=== PATIENT | male | born 1965 | race Caucasian/White ===

== ENCOUNTER 2016-02-26 14:07 | Emergency (ER) | payer OTHER ==
[~2016-02-26] VITALS: Ht 182.9 cm; Wt 60.2 kg
[~2016-02-26 14:07] MED LIST: ADVAIR 100/501 DISK IH; ADVAIR 250/501 DISK IH; AFRIN,GENASAL D15 ML BOTH NARES; AFRIN3 ML NS; ALOE VERA PO; ALOE VERA25 MG PO; ASCORBIC ACID; AUGMENTIN875 MG PO; Afrin,Genasal Decon, NS; Ascorbic Acid,Ester- PO; Augmentin PO; BENTYL10 MG PO; BENTYL20 MG PO; BETA CAROTENE; Bentyl PO; CALCIUM600 MG PO; CARAFATE1 GM PO; CARAFATE100 MG/ML PO; CLEARLAX17 GM PO; COLACE100 MG PO; COMPAZINE10 MG PO; CREON; CREON 241 CAPSULE PO; CREON 61 CAPSULE PO; CREON DR 12,001 EAC1 PO; Creon 12 PO; DAILY VALUE1 EACH PO; DAILY VITAMIN1 EAC8 PO; DAILY VITE1 EAC1 PO; DESYREL12.5 MG PO; DICYCLOMINE HCL20 MG PO; DILAUDID2 MG PO; DILAUDID4 MG; DILAUDID4 MG PO; DILAUDID8 MG; DILAUDID8 MG PO; DIMENHYDRINATE50 MG PO; DONNATAL1 TABLET PO; DRAMAMINE PO; DRAMAMINE50 M1 PO; DRAMAMINE50 MG PO; Desyrel PO; Dilaudid PO; ECHINACEA; ECHINACEA380 MG PO; EFFEXOR100 MG PO; ENDOCET 5-3251 EACH PO; ESCITALOPRAM OX10 MG PO; ETHAMBUTOL HCL400 MG PO; EXALGO12 MG PO; EXALGO16 MG PO; EXALGO8 MG PO; EXCEDRIN; EXCEDRIN EXTRA1 EACH PO; EXCEDRIN1 TABLET PO; Echinacea PO; Effexor PO; Excedrin PO; FENTANYL PATCH TD; FEOSOL325 MG PO; FIBERCON625 MG PO; FISH OIL SOFTG1 EACH PO; FOLIC ACID1 MG PO; GABAPENTIN300 M1 PO; GABAPENTIN800 MG PO; GIN-ZING100 MG PO; GINSENG100 M2 PO; GREEN TEA315 MG PO; HABITROL,NICODE21 MG TD; HUMIBID LA,MUC600 MG PO; HYDROMORPHONE HC4 MG PO; HYDROMORPHONE HC8 MG PO; HYDROMORPHONE PUMP IV; IBUPROFEN200 M1 PO; IRON325 M1 PO; ISONIAZID,INH300 MG PO; LAXATIVE PEG 3510 GM PO; LEVAQUIN500 MG PO; LEVAQUIN750 MG PO; LEVEMIR100 UNIT/2 SC; LEXAPRO10 MG PO; LISINOPRIL10 MG PO; LOMOTIL TABLET1 EACH PO; METHIONINE PO; METOCLOPRAMIDE10 MG PO; MILK OF MAGN PO; MILK OF MAGNESI10 ML PO; MIRALAX17 GM PO; MORPHINE SULFAT15 M1 PO; MORPHINE SULFAT15 MG PO; MULTI-VIT 55 P1 EACH PO; MULTIVITAMIN1 EAC1 PO; MULTIVITAMIN1 EAC2 PO; Milk Of Magnesia,MOM PO; NAPROSYN500 MG PO; NASAL DECONGEST30 MG PO; NASAL DECONGEST30 ML BOTH NARES; NASAL SPRAY30 M1 NS; NASAL SPRAY30 M4 BOTH NARES; NEURONTIN300 MG PO; NEURONTIN800 MG PO; NEXIUM40 MG PO; NICOTINE PATCH1 EAC1 TD; NOVOLOG PE100 UNITS/ SC; Neurontin PO; OMEGA 3; OMEGA-31000 M1 PO; OMEPRAZOLE20 MG PO; OMEPRAZOLE40 M1 PO; ONDANSETRON HCL4 MG PO; OXYCODONE HCL10 MG PO; OXYCODONE HCL20 MG PO; OXYCODONE15 MG PO; OXYCODONE5 MG PO; OXYCONTIN15 MG PO; OXYCONTIN30 MG PO; Ocean Nasal 0.65% NS; PANCREASE PO; PANCRELIPASE 51 EACH PO; PANTOPRAZOLE SO40 MG PO; PERCOCET 5/31 TABLET PO; PERCOCET 7.51 TABLET PO; PHENERGAN25 MG PO; PHILLIPS'400 MG/5 M PO; POLYETHYLENE GL17 GM PO; POTASSIUM GLUCO2 MEQ PO; POTASSIUM GLUCONATE; PRILOSEC40 MG PO; PRINIVIL10 MG PO; PROCHLORPERAZIN10 MG PO; PROMETHAZINE HC25 M1 PO; PROMETHAZINE HC50 M1 PO; PROTONIX40 MG PO; PROVENTIL HFA6.7 GM IH; PYRAZINAMIDE PO; PYRIDOXINE,VIT100 MG PO; Phenergan PO; Proventil,Ventolin H IH; REGLAN10 MG PO; RIFAMPIN300 MG PO; ROXICODONE15 MG PO; Reglan PO; SELENIUM; SINUS PE DECONG10 MG PO; SINUS PRESSURE-10 MG PO; SODIUM CHLORIDE1 G1 PO; SPIRIVA1 INHALATI IH; SUCRALFATE1 GM PO; SUPER B COMPLEX; SUPER B-50 COM1 EACH PO; THERAGRAN1 TABLET PO; TRAMADOL HCL50 MG PO; TRAZODONE HCL50 MG PO; TYLENOL EXTRA500 MG PO; Theragran PO; VENLAFAXINE HC100 MG PO; VENLAFAXINE HCL75 M3 PO; VENTOLIN; VENTOLIN HFA18 GM IH; VIT B COMPLEX PO; VIT C PO; VIT E PO; VITAMIN A; VITAMIN A10000 UNIT PO; VITAMIN B CO1 TABLET PO; VITAMIN B-12250 MCG PO; VITAMIN B-650 MG PO; VITAMIN B12; VITAMIN B12 PO; VITAMIN B12-FO1 EACH PO; VITAMIN B6; VITAMIN B6100 MG PO; VITAMIN C500 M1 PO; VITAMIN D400 INTUNI PO; VITAMIN D400 UNI2 PO; VITAMIN E; VITAMIN E400 UNI1 PO; VITAMIN E400 UNI3 PO; Vitamin B-12 PO; Vitamin-E PO; ZANTAC; ZANTAC150 MG PO; ZANTAC75 M1 PO; ZENPEP DR 20,01 EACH PO; ZESTRIL,PRINIVI10 M1 PO; ZESTRIL10 MG PO; ZOFRAN4 MG PO; Zithromax PO; [UNRECOGNIZED DRUG - OTHER]; [UNRECOGNIZED DRUG - OTHER] NS; [UNRECOGNIZED DRUG - OTHER] PO; [UNRECOGNIZED DRUG - OTHER] PO; [UNRECOGNIZED DRUG - REMARK]; [UNRECOGNIZED DRUG - REMARK]
[2016-02-26 15:14] LABS: HEMATOCRIT 37.1 % (38.0-50.0); MCH 24.7 PG (29.0-34.0); MCHC 31.8 G/DL (30.0-36.0); MCV 77.8 FL (86-99); MEAN PLAT.VOLUME 8.3 uM^3 (9.0-12.4); PLATELET COUNT 330 K/uL (156-360); RBC DIS.WIDTH-CV 15.6 % (11.8-14.6); RBC DIS.WIDTH-SD 43.1 % (39-53); RED BLOOD COUNT 4.77 M/uL (4.00-5.50); WHITE BLOOD COUNT 11.6 K/uL (4.1-10.2)
[2016-02-26 15:29] LABS: CHLORIDE 97 mEq/L (99-109); POTASSIUM 3.8 mEq/L (3.7-5.4); SODIUM 133 mEq/L (136-147)
[2016-02-26 15:31] LABS: GLUCOSE 240 mg/dL (70-99)
[2016-02-26 15:33] LABS: ANION GAP 11 MEQ/L (2-14); TOTAL BILIRUBIN 0.1 mg/dL (0.0-1.0)
[2016-02-26 15:35] LABS: ALKALINE PHOSPHATASE 112 IU/L (3-129); GFR ESTIMATE (CALCULATED) > 59 mL/min/
[2016-02-26 15:36] LABS: UREA NITROGEN (BUN) 12 mg/dL (9-23)
[2016-02-26 15:39] LABS: LIPASE 14 U/L (1.0-51.0)
[2016-02-26 15:54] VITALS: BP 141/89
== END 2016-02-26 15:59 | disposition home or self-care (01) ==
LOC: EME 14:07
PROVIDERS: Emergency Medicine
DX: R10.30 Lower abdominal pain, unspecified (principal); G89.29 Other chronic pain; Z79.891 Long term (current) use of opiate analgesic; E11.9 Type 2 diabetes mellitus without complications; J44.9 Chronic obstructive pulmonary disease, unspecified; I10 Essential (primary) hypertension; K21.9 Gastro-esophageal reflux disease without esophagitis; F17.200 Nicotine dependence, unspecified, uncomplicated
CPT/HCPCS: 80053; 83690; 85027; 99281; 99284

== ENCOUNTER 2016-03-23 16:55 | Emergency (ER) | payer OTHER ==
[~2016-03-23] VITALS: Ht 185.4 cm; Wt 58.6 kg
[2016-03-23 17:51] LABS: HEMATOCRIT 47.1 % (38.0-50.0); MCHC 33.1 G/DL (30.0-36.0); MCV 75.6 FL (86-99); MEAN PLAT.VOLUME 8.5 uM^3 (9.0-12.4); PLATELET COUNT 460 K/uL (156-360); RBC DIS.WIDTH-CV 19.2 % (11.8-14.6); RBC DIS.WIDTH-SD 49.5 % (39-53); RED BLOOD COUNT 6.23 M/uL (4.00-5.50); WHITE BLOOD COUNT 15.1 K/uL (4.1-10.2)
[2016-03-23 17:59] LABS: CHLORIDE 92 mEq/L (99-109); POTASSIUM 4.3 mEq/L (3.7-5.4); SODIUM 133 mEq/L (136-147)
[2016-03-23 18:01] LABS: GLUCOSE 199 mg/dL (70-99)
[2016-03-23 18:02] LABS: ANION GAP 17 MEQ/L (2-14)
[2016-03-23 18:03] LABS: TOTAL BILIRUBIN 0.5 mg/dL (0.0-1.0)
[2016-03-23 18:05] LABS: ALKALINE PHOSPHATASE 169 IU/L (3-129); GFR ESTIMATE (CALCULATED) > 59 mL/min/
[2016-03-23 18:06] LABS: UREA NITROGEN (BUN) 13 mg/dL (9-23)
[2016-03-23 18:08] LABS: LIPASE 8 U/L (1.0-51.0)
[2016-03-23 20:08] LABS: ADD MIUA? NO; BILIRUBIN SMALL; BLOOD NEGATIVE; COLOR AMBER ((YELLOW)); GLUCOSE (STRIP) NEGATIVE; KETONES NEGATIVE; LEUKOCYTES NEGATIVE; NITRITE NEGATIVE; PROTEIN (STRIP) NEGATIVE; SPECIFIC GRAVITY 1.025 (1.000-1.030); UCUL ADDED? NO; UROBILINOGEN 0.2 MG/DL (0.2-1.0)
[2016-03-23] MEDS ORDERED: ZOFRAN ODT4 MG PO (20:23)
[2016-03-23 20:25] LABS: BASOPHIL COUNT 0.1 K/uL (0-0.1); EOSINOPHIL (%) 2.4 % (0-5); EOSINOPHIL COUNT 0.4 K/uL (0-0.3); HEMATOLOGY COMMENT 1 SMEAR COMPATIBLE; IMMATURE GRANULOCYTE (%) 0.5 % (0.0-0.7); IMMATURE GRANULOCYTE COUNT 0.8 K/uL; MONOCYTE (%) 13.5 % (3-12); NEUTROPHIL (%) 69.9 % (45-76); NEUTROPHIL COUNT 10.5 K/uL (1.8-6.4); PLAT.SUFFICIENCY NORMAL
[2016-03-23 21:29] VITALS: BP 128/85
== END 2016-03-23 21:29 | disposition home or self-care (01) ==
LOC: EME 16:55
DX: R10.12 Left upper quadrant pain (principal); G89.29 Other chronic pain; R11.2 Nausea with vomiting, unspecified; E86.0 Dehydration; F17.200 Nicotine dependence, unspecified, uncomplicated; D72.829 Elevated white blood cell count, unspecified; Z85.07 Personal history of malignant neoplasm of pancreas; Z85.01 Personal history of malignant neoplasm of esophagus; E11.9 Type 2 diabetes mellitus without complications; J44.9 Chronic obstructive pulmonary disease, unspecified; I10 Essential (primary) hypertension; K21.9 Gastro-esophageal reflux disease without esophagitis
CPT/HCPCS: 71020; 80053; 81003; 83690; 85025; 85027; 93005; 99281; 99284; J1170; J2405; J7030; J7050

== ENCOUNTER 2016-03-29 12:40 | Emergency (ER) | payer OTHER ==
[~2016-03-29] VITALS: Ht 182.9 cm; Wt 56.1 kg
[~2016-03-29 12:40] MED LIST changes: +ZOFRAN ODT4 MG PO
[2016-03-29 13:42] LABS: ADD MIUA? NO; BILIRUBIN NEGATIVE; BLOOD NEGATIVE; COLOR AMBER ((YELLOW)); GLUCOSE (STRIP) NEGATIVE; KETONES NEGATIVE; LEUKOCYTES NEGATIVE; NITRITE NEGATIVE; PROTEIN (STRIP) 30; SPECIFIC GRAVITY 1.013 (1.000-1.030); UCUL ADDED? NO; UROBILINOGEN 0.2 MG/DL (0.2-1.0)
[2016-03-29 14:12] LABS: HEMATOCRIT 44.7 % (38.0-50.0); MCH 24.8 PG (29.0-34.0); MCHC 32.7 G/DL (30.0-36.0); PLATELET COUNT 461 K/uL (156-360); RBC DIS.WIDTH-CV 18.1 % (11.8-14.6); RBC DIS.WIDTH-SD 48.8 % (39-53); RED BLOOD COUNT 5.88 M/uL (4.00-5.50); WHITE BLOOD COUNT 11.7 K/uL (4.1-10.2)
[2016-03-29 14:23] LABS: CHLORIDE 96 mEq/L (99-109); POTASSIUM 4.7 mEq/L (3.7-5.4); SODIUM 134 mEq/L (136-147)
[2016-03-29 14:25] LABS: GLUCOSE 74 mg/dL (70-99)
[2016-03-29 14:27] LABS: ANION GAP 15 MEQ/L (2-14); TOTAL BILIRUBIN 0.6 mg/dL (0.0-1.0)
[2016-03-29 14:29] LABS: ALKALINE PHOSPHATASE 156 IU/L (3-129); GFR ESTIMATE (CALCULATED) > 59 mL/min/
[2016-03-29 14:30] LABS: UREA NITROGEN (BUN) 9 mg/dL (9-23)
[2016-03-29 14:33] LABS: LIPASE 7 U/L (1.0-51.0)
[2016-03-29 17:12] VITALS: BP 155/98
== END 2016-03-29 17:14 | disposition home or self-care (01) ==
LOC: EME 12:40
DX: R10.12 Left upper quadrant pain (principal); G89.29 Other chronic pain; R11.2 Nausea with vomiting, unspecified; E11.9 Type 2 diabetes mellitus without complications; J44.9 Chronic obstructive pulmonary disease, unspecified; I10 Essential (primary) hypertension; K21.9 Gastro-esophageal reflux disease without esophagitis; Z85.01 Personal history of malignant neoplasm of esophagus; Z85.07 Personal history of malignant neoplasm of pancreas; F17.200 Nicotine dependence, unspecified, uncomplicated
CPT/HCPCS: 80053; 81003; 83690; 85027; 93005; 99281; 99284; J1170; J3010; J7030; J7050

== ENCOUNTER 2016-04-09 08:50 | Emergency (ER) | payer OTHER ==
[~2016-04-09] VITALS: Ht 182.9 cm; Wt 59.8 kg
[2016-04-09 10:14] LABS: HEMATOCRIT 36.8 % (38.0-50.0); MCH 25.3 PG (29.0-34.0); MCHC 32.6 G/DL (30.0-36.0); MCV 77.5 FL (86-99); MEAN PLAT.VOLUME 8.4 uM^3 (9.0-12.4); PLATELET COUNT 328 K/uL (156-360); RBC DIS.WIDTH-CV 18.3 % (11.8-14.6); RBC DIS.WIDTH-SD 49.3 % (39-53); WHITE BLOOD COUNT 10.9 K/uL (4.1-10.2)
[2016-04-09 10:15] LABS: RED BLOOD COUNT 4.75 M/uL (4.00-5.50)
[2016-04-09 10:23] LABS: CHLORIDE 101 mEq/L (99-109); POTASSIUM 3.9 mEq/L (3.7-5.4); SODIUM 135 mEq/L (136-147)
[2016-04-09 10:26] LABS: GLUCOSE 158 mg/dL (70-99)
[2016-04-09 10:27] LABS: ANION GAP 9 MEQ/L (2-14)
[2016-04-09 10:28] LABS: TOTAL BILIRUBIN < 0.1 mg/dL (0.0-1.0)
[2016-04-09 10:29] LABS: ALKALINE PHOSPHATASE 101 IU/L (3-129); GFR ESTIMATE (CALCULATED) > 59 mL/min/
[2016-04-09 10:31] LABS: UREA NITROGEN (BUN) 8 mg/dL (9-23)
[2016-04-09 10:33] LABS: LIPASE 9 U/L (1.0-51.0)
[2016-04-09 11:59] LABS: ADD MIUA? YES; BILIRUBIN SMALL; BLOOD NEGATIVE; COLOR AMBER ((YELLOW)); GLUCOSE (STRIP) NEGATIVE; KETONES 5; LEUKOCYTES NEGATIVE; NITRITE NEGATIVE; PROTEIN (STRIP) 100; SPECIFIC GRAVITY 1.032 (1.000-1.030); UROBILINOGEN 0.2 MG/DL (0.2-1.0)
[2016-04-09 12:12] LABS: BACTERIA NONE SEEN /HPF; EPITHELIAL CELLS RARE /HPF; HYALINE CASTS 40-50 /LPF; MUCUS TRACE /LPF; RED BLOOD CELLS 0-5 /HPF (0-5); UCUL ADDED? NO
[2016-04-09] MEDS ORDERED: COLACE100 MG PO (14:00)
[2016-04-09 14:26] VITALS: BP 136/80
== END 2016-04-09 14:26 | disposition home or self-care (01) ==
LOC: EME 08:50
PROVIDERS: Nurse Practitioner Family
DX: R10.13 Epigastric pain (principal); G89.29 Other chronic pain; R11.0 Nausea; K59.09 Other constipation; R06.00 Dyspnea, unspecified; I10 Essential (primary) hypertension; J44.9 Chronic obstructive pulmonary disease, unspecified; J45.909 Unspecified asthma, uncomplicated; Z79.891 Long term (current) use of opiate analgesic; F17.200 Nicotine dependence, unspecified, uncomplicated; Z71.6 Tobacco abuse counseling
CPT/HCPCS: 74020; 80053; 81003; 83690; 85027; 99281; 99284; J3010; J7030

== ENCOUNTER 2016-04-10 00:15 | Emergency (ER) | payer OTHER ==
[~2016-04-10] VITALS: Ht 182.9 cm; Wt 58.8 kg
[2016-04-10 01:05] LABS: HEMATOCRIT 40.6 % (38.0-50.0); MCH 25.9 PG (29.0-34.0); MCHC 33.3 G/DL (30.0-36.0); MCV 77.8 FL (86-99); MEAN PLAT.VOLUME 8.3 uM^3 (9.0-12.4); PLATELET COUNT 360 K/uL (156-360); RBC DIS.WIDTH-CV 18.4 % (11.8-14.6); RBC DIS.WIDTH-SD 50.3 % (39-53); RED BLOOD COUNT 5.22 M/uL (4.00-5.50); WHITE BLOOD COUNT 10.8 K/uL (4.1-10.2)
[2016-04-10 01:13] LABS: CHLORIDE 100 mEq/L (99-109); POTASSIUM 3.6 mEq/L (3.7-5.4); SODIUM 139 mEq/L (136-147)
[2016-04-10 01:16] LABS: ANION GAP 11 MEQ/L (2-14)
[2016-04-10 01:17] LABS: TOTAL BILIRUBIN 0.1 mg/dL (0.0-1.0)
[2016-04-10 01:19] LABS: ALKALINE PHOSPHATASE 115 IU/L (3-129); GFR ESTIMATE (CALCULATED) > 59 mL/min/
[2016-04-10 01:20] LABS: UREA NITROGEN (BUN) 8 mg/dL (9-23)
[2016-04-10 01:22] LABS: LIPASE 10 U/L (1.0-51.0)
[2016-04-10 01:24] LABS: GLUCOSE 85 mg/dL (70-99)
[2016-04-10 03:26] VITALS: BP 156/99
== END 2016-04-10 03:28 | disposition home or self-care (01) ==
LOC: EME 00:15
PROVIDERS: Emergency Medicine
DX: K52.9 Noninfective gastroenteritis and colitis, unspecified (principal); R11.2 Nausea with vomiting, unspecified; R10.9 Unspecified abdominal pain
CPT/HCPCS: 71010; 74177; 80053; 81003; 83605; 83690; 85027; 99281; 99285; C9113; J1170; J2405; J7030; J7050

== ENCOUNTER 2016-06-04 13:05 | Emergency (ER) | payer OTHER ==
[~2016-06-04] VITALS: Ht 182.9 cm; Wt 58.7 kg
[2016-06-04 15:32] VITALS: BP 159/99
== END 2016-06-04 15:35 | disposition home or self-care (01) ==
LOC: EME 13:05
DX: K86.1 Other chronic pancreatitis (principal); R06.00 Dyspnea, unspecified; Z97.8 Presence of other specified devices; Z79.891 Long term (current) use of opiate analgesic; J44.9 Chronic obstructive pulmonary disease, unspecified; J45.909 Unspecified asthma, uncomplicated; I10 Essential (primary) hypertension; Z90.49 Acquired absence of other specified parts of digestive tract; F17.200 Nicotine dependence, unspecified, uncomplicated
CPT/HCPCS: 99281; 99284; J3010

== ENCOUNTER 2016-06-17 19:54 | Emergency (ER) | payer OTHER ==
[~2016-06-17] VITALS: Ht 182.9 cm; Wt 58.3 kg
[2016-06-17 20:16] LABS: HEMATOCRIT 38.4 % (38.0-50.0); MCH 25.9 PG (29.0-34.0); MCV 83.5 FL (86-99); MEAN PLAT.VOLUME 8.7 uM^3 (9.0-12.4); PLATELET COUNT 253 K/uL (156-360); RBC DIS.WIDTH-CV 13.7 % (11.8-14.6); WHITE BLOOD COUNT 9.8 K/uL (4.1-10.2)
[2016-06-17 20:25] LABS: CHLORIDE 101 mEq/L (99-109); POTASSIUM 3.8 mEq/L (3.7-5.4); SODIUM 138 mEq/L (136-147)
[2016-06-17 20:27] LABS: GLUCOSE 189 mg/dL (70-99)
[2016-06-17 20:28] LABS: ANION GAP 8 MEQ/L (2-14)
[2016-06-17 20:29] LABS: TOTAL BILIRUBIN 0.1 mg/dL (0.0-1.0)
[2016-06-17 20:30] LABS: ALKALINE PHOSPHATASE 96 IU/L (3-129)
[2016-06-17 20:31] LABS: GFR ESTIMATE (CALCULATED) > 59 mL/min/
[2016-06-17 20:32] LABS: UREA NITROGEN (BUN) 11 mg/dL (9-23)
[2016-06-17 20:34] LABS: LIPASE 8 U/L (1.0-51.0)
[2016-06-17 21:06] LABS: ADD MIUA? NO; BILIRUBIN SMALL; BLOOD NEGATIVE; COLOR YELLOW ((YELLOW)); GLUCOSE (STRIP) NEGATIVE; KETONES NEGATIVE; LEUKOCYTES NEGATIVE; NITRITE NEGATIVE; PROTEIN (STRIP) 30; SPECIFIC GRAVITY 1.021 (1.000-1.030); UCUL ADDED? NO; UROBILINOGEN 0.2 MG/DL (0.2-1.0)
[2016-06-17 21:27] VITALS: BP 120/77
== END 2016-06-17 21:28 | disposition home or self-care (01) ==
LOC: EME 19:54
DX: G89.29 Other chronic pain (principal); R10.13 Epigastric pain; R11.2 Nausea with vomiting, unspecified; Z79.891 Long term (current) use of opiate analgesic; I10 Essential (primary) hypertension; J44.9 Chronic obstructive pulmonary disease, unspecified; J45.909 Unspecified asthma, uncomplicated; Z85.01 Personal history of malignant neoplasm of esophagus; Z85.07 Personal history of malignant neoplasm of pancreas; Z90.49 Acquired absence of other specified parts of digestive tract; F17.200 Nicotine dependence, unspecified, uncomplicated
CPT/HCPCS: 80053; 81003; 83690; 85027; 99281; 99284; J3010

== ENCOUNTER 2016-07-01 16:06 | Emergency (ER) | payer OTHER ==
[~2016-07-01] VITALS: Ht 182.9 cm; Wt 56.8 kg
[2016-07-01 17:16] LABS: HEMATOCRIT 41.1 % (38.0-50.0); MCH 25.7 PG (29.0-34.0); MCHC 31.9 G/DL (30.0-36.0); MCV 80.7 FL (86-99); MEAN PLAT.VOLUME 9.1 uM^3 (9.0-12.4); PLATELET COUNT 259 K/uL (156-360); RBC DIS.WIDTH-CV 13.2 % (11.8-14.6); RBC DIS.WIDTH-SD 38.6 % (39-53); RED BLOOD COUNT 5.09 M/uL (4.00-5.50); WHITE BLOOD COUNT 8.8 K/uL (4.1-10.2)
[2016-07-01 17:26] LABS: CHLORIDE 95 mEq/L (99-109); POTASSIUM 3.4 mEq/L (3.7-5.4); SODIUM 135 mEq/L (136-147)
[2016-07-01 17:29] LABS: GLUCOSE 237 mg/dL (70-99)
[2016-07-01 17:30] LABS: ANION GAP 10 MEQ/L (2-14)
[2016-07-01 17:31] LABS: TOTAL BILIRUBIN 0.1 mg/dL (0.0-1.0)
[2016-07-01 17:32] LABS: ALKALINE PHOSPHATASE 85 IU/L (3-129); GFR ESTIMATE (CALCULATED) > 59 mL/min/
[2016-07-01 17:33] LABS: UREA NITROGEN (BUN) 12 mg/dL (9-23)
[2016-07-01 17:36] LABS: LIPASE 7 U/L (1.0-51.0)
[2016-07-01 18:18] VITALS: BP 128/81
== END 2016-07-01 18:19 | disposition home or self-care (01) ==
LOC: EME 16:06
PROVIDERS: Physician Assistant Medical
DX: R10.9 Unspecified abdominal pain (principal); G89.29 Other chronic pain; E11.9 Type 2 diabetes mellitus without complications; J44.9 Chronic obstructive pulmonary disease, unspecified; I10 Essential (primary) hypertension; K21.9 Gastro-esophageal reflux disease without esophagitis; Z79.891 Long term (current) use of opiate analgesic; Z79.4 Long term (current) use of insulin; F17.200 Nicotine dependence, unspecified, uncomplicated
CPT/HCPCS: 80053; 81003; 83690; 85027; 99281; 99284; J1885; J7030

== ENCOUNTER 2016-09-28 20:41 | Inpatient (IN) | payer OTHER ==
[~2016-09-28] VITALS: Ht 182.9 cm; Wt 53.2 kg
[2016-09-28 22:11] LABS: HEMATOCRIT 37.5 % (38.0-50.0); MCH 26.8 PG (29.0-34.0); MCHC 32.5 G/DL (30.0-36.0); MCV 82.2 FL (86-99); PLATELET COUNT 449 K/uL (156-360); RBC DIS.WIDTH-CV 16.2 % (11.8-14.6); RBC DIS.WIDTH-SD 48.8 % (39-53); RED BLOOD COUNT 4.56 M/uL (4.00-5.50); WHITE BLOOD COUNT 16.4 K/uL (4.1-10.2)
[2016-09-28 22:23] LABS: CHLORIDE 91 mEq/L (99-109); POTASSIUM 3.9 mEq/L (3.7-5.4); SODIUM 133 mEq/L (136-147)
[2016-09-28 22:25] LABS: GLUCOSE 229 mg/dL (70-99)
[2016-09-28 22:26] LABS: ANION GAP 18 MEQ/L (2-14)
[2016-09-28 22:27] LABS: TOTAL BILIRUBIN 0.1 mg/dL (0.0-1.0)
[2016-09-28 22:36] LABS: ALKALINE PHOSPHATASE 121 IU/L (3-129); GFR ESTIMATE (CALCULATED) > 59 mL/min/; LIPASE 4 U/L (1.0-51.0); UREA NITROGEN (BUN) 20 mg/dL (9-23)
[2016-09-28 22:40] LABS: INTER. NORMALIZED RATIO 1.2; PROTHROMBIN TIME 12.8 SEC (10.2-12.9)
[2016-09-28 22:43] LABS: PTT 30.7 SEC (25-37)
[2016-09-28 22:50] LABS: CARBON DIOXIDE (BICARBONATE) 29.3 MEQ/L (20-31)
[2016-09-29] MEDS ORDERED: TOUJEO SOL300 UNIT/1 SC (04:51)
[2016-09-29 05:38] LABS: SERUM ETHYL ALCOHOL < 10 mg/dL
[2016-09-29 07:53] LABS: HEMATOCRIT 35.1 % (38.0-50.0); MCV 81.4 FL (86-99)
[2016-09-29 13:01] LABS: ADD MIUA? NO; BILIRUBIN NEGATIVE; BLOOD NEGATIVE; COLOR YELLOW ((YELLOW)); GLUCOSE (STRIP) 150; KETONES 20; LEUKOCYTES NEGATIVE; NITRITE NEGATIVE; PROTEIN (STRIP) 30; UCUL ADDED? NO; UROBILINOGEN 0.2 MG/DL (0.2-1.0)
[2016-09-29 13:01] LABS: POINT-OF-CARE METER ID UU14100415
[2016-09-29 13:19] LABS: SPECIFIC GRAVITY 1.078 (1.000-1.030)
[2016-09-29 13:27] VITALS: BP 142/77
[2016-09-29 13:45] LABS: AMPHETAMINES QUANT VALUE 0 NG/ML; BARBITUATES QUANT VALUE 0 NG/ML; BENZODIAZEPINES QUANT VALUE 0 NG/ML; BENZODIAZEPINES, URINE SCREEN Negative (200 ng/mL); MARIJUANA QUANT VALUE 0 NG/ML; PHENCYCLIDINE QUANT VALUE 0 NG/ML
[2016-09-29 16:05] VITALS: BP 150/87
[2016-09-29 19:01] VITALS: BP 121/69
[2016-09-29 19:58] LABS: HEMATOCRIT 29.8 % (38.0-50.0); MCV 83.5 FL (86-99)
[2016-09-30] VITALS (7 sets, daily range): BP systolic 132–146; BP diastolic 67–77
[2016-09-30 01:07] LABS: POINT-OF-CARE METER ID UU14208753
[2016-09-30 06:37] LABS: POINT-OF-CARE METER ID UU14208753
[2016-09-30 08:15] LABS: HEMATOCRIT 28.3 % (38.0-50.0)
[2016-09-30 08:17] LABS: HEMATOCRIT 28.4 % (38.0-50.0); MCH 26.1 PG (29.0-34.0); MCHC 31.7 G/DL (30.0-36.0); MCV 82.3 FL (86-99); RBC DIS.WIDTH-CV 16.5 % (11.8-14.6); RBC DIS.WIDTH-SD 49.7 % (39-53); WHITE BLOOD COUNT 14.2 K/uL (4.1-10.2)
[2016-09-30 08:31] LABS: RED BLOOD COUNT 3.45 M/uL (4.00-5.50)
[2016-09-30 08:45] LABS: ALKALINE PHOSPHATASE 85 IU/L (3-129); ANION GAP 9 MEQ/L (2-14); CHLORIDE 99 MEQ/L (99-109); GFR ESTIMATE (CALCULATED) > 59 mL/min/; SAMPLE HEMOLYSIS CHECK 0; SAMPLE ICTERIC CHECK 0; SAMPLE LIPEMIA CHECK 0; SODIUM 134 MEQ/L (136-147); TOTAL BILIRUBIN 0.2 MG/DL (0.0-1.0); UREA NITROGEN (BUN) 18 mg/dL (9-23)
[2016-09-30 08:47] LABS: GLUCOSE 79 mg/dL (70-99)
[2016-09-30 09:02] LABS: MEAN PLAT.VOLUME 8.8 uM^3 (9.0-12.4); PLAT.SUFFICIENCY ADEQUATE
[2016-09-30 09:16] LABS: PLATELET COUNT 289 K/uL (156-360)
[2016-09-30 12:12] LABS: POINT-OF-CARE METER ID UU14208753
[2016-09-30 18:29] LABS: POINT-OF-CARE METER ID UU14208753
[2016-10-01 03:39] VITALS: BP 126/73
[2016-10-01 06:20] LABS: POINT-OF-CARE METER ID UU14188577
[2016-10-01 07:09] LABS: HEMATOCRIT 25.1 % (38.0-50.0); MCH 26.6 PG (29.0-34.0); MCHC 32.3 G/DL (30.0-36.0); MCV 82.6 FL (86-99); MEAN PLAT.VOLUME 8.8 uM^3 (9.0-12.4); PLATELET COUNT 267 K/uL (156-360); RBC DIS.WIDTH-CV 16.2 % (11.8-14.6); RBC DIS.WIDTH-SD 49.4 % (39-53); RED BLOOD COUNT 3.04 M/uL (4.00-5.50); WHITE BLOOD COUNT 12.1 K/uL (4.1-10.2)
[2016-10-01 07:44] LABS: ANION GAP 6 MEQ/L (2-14); CHLORIDE 97 MEQ/L (99-109); GFR ESTIMATE (CALCULATED) > 59 mL/min/; POTASSIUM 3.5 MEQ/L (3.7-5.4); SAMPLE HEMOLYSIS CHECK 0; SAMPLE ICTERIC CHECK 0; SAMPLE LIPEMIA CHECK 0; SODIUM 132 MEQ/L (136-147); UREA NITROGEN (BUN) 7 mg/dL (9-23)
[2016-10-01 07:46] LABS: GLUCOSE 102 mg/dL (70-99)
[2016-10-01 08:32] VITALS: BP 130/73
[2016-10-01 09:49] LABS: MAGNESIUM 1.9 mg/dl (1.3-2.7)
[2016-10-01 11:56] VITALS: BP 122/72
[2016-10-01 15:58] VITALS: BP 126/66
[2016-10-01 17:26] LABS: POINT-OF-CARE METER ID UU14208753
[2016-10-01 18:10] VITALS: BP 148/77
[2016-10-01 22:31] LABS: POINT-OF-CARE METER ID UU14188625
[2016-10-01 23:28] LABS: POINT-OF-CARE METER ID UU14188625
[2016-10-01 23:50] VITALS: BP 181/84
[2016-10-02 06:04] LABS: POINT-OF-CARE METER ID UU14174225
[2016-10-02 06:04] LABS: HEMATOCRIT 25.5 % (38.0-50.0); MCH 26.4 PG (29.0-34.0); MCHC 32.2 G/DL (30.0-36.0); PLATELET COUNT 275 K/uL (156-360); RBC DIS.WIDTH-SD 48.2 % (39-53); RED BLOOD COUNT 3.11 M/uL (4.00-5.50); WHITE BLOOD COUNT 9.2 K/uL (4.1-10.2)
[2016-10-02 07:04] LABS: ANION GAP 8 MEQ/L (2-14); CHLORIDE 99 MEQ/L (99-109); GFR ESTIMATE (CALCULATED) > 59 mL/min/; GLUCOSE 90 mg/dL (70-99); POTASSIUM 3.4 MEQ/L (3.7-5.4); SAMPLE HEMOLYSIS CHECK 0; SAMPLE ICTERIC CHECK 0; SAMPLE LIPEMIA CHECK 0; SODIUM 135 MEQ/L (136-147); UREA NITROGEN (BUN) 7 mg/dL (9-23)
[2016-10-02 07:53] VITALS: BP 131/76
[2016-10-02 11:06] VITALS: BP 111/67
[2016-10-02 12:30] LABS: POINT-OF-CARE METER ID UU14174225
[2016-10-02 15:30] VITALS: BP 122/66
[2016-10-02 17:06] LABS: POINT-OF-CARE METER ID UU14174225
[2016-10-02 20:20] LABS: POINT-OF-CARE METER ID UU14174225
[2016-10-03 00:25] VITALS: BP 111/72
[2016-10-03 05:46] LABS: POINT-OF-CARE METER ID UU14188625
[2016-10-03 06:37] LABS: HEMATOCRIT 26.5 % (38.0-50.0); MCH 27.3 PG (29.0-34.0); MCHC 32.8 G/DL (30.0-36.0); MCV 83.1 FL (86-99); MEAN PLAT.VOLUME 8.9 uM^3 (9.0-12.4); RBC DIS.WIDTH-CV 16.2 % (11.8-14.6); RBC DIS.WIDTH-SD 49.4 % (39-53); RED BLOOD COUNT 3.19 M/uL (4.00-5.50); WHITE BLOOD COUNT 9.4 K/uL (4.1-10.2)
[2016-10-03 06:47] LABS: ANION GAP 6 MEQ/L (2-14); CHLORIDE 97 MEQ/L (99-109); GFR ESTIMATE (CALCULATED) > 59 mL/min/; GLUCOSE 98 mg/dL (70-99); SAMPLE HEMOLYSIS CHECK 0; SAMPLE ICTERIC CHECK 0; SAMPLE LIPEMIA CHECK 0; SODIUM 132 MEQ/L (136-147); UREA NITROGEN (BUN) 6 mg/dL (9-23)
[2016-10-03 07:01] LABS: PLATELET COUNT 368 K/uL (156-360)
[2016-10-03 08:27] VITALS: BP 119/71
[2016-10-03 12:08] LABS: POINT-OF-CARE METER ID UU14188625
[2016-10-03 15:52] VITALS: BP 112/68
[2016-10-03 17:27] LABS: POINT-OF-CARE METER ID UU14188625
[2016-10-03 21:15] LABS: POINT-OF-CARE METER ID UU14188625
[2016-10-03 23:40] VITALS: BP 105/65
[2016-10-04 06:17] LABS: EOSINOPHIL (%) 3.9 % (0-5); EOSINOPHIL COUNT 0.3 K/uL (0-0.3); HEMATOCRIT 28.4 % (38.0-50.0); IMMATURE GRANULOCYTE (%) 0.9 % (0.0-0.7); IMMATURE GRANULOCYTE COUNT 0.1 K/uL; INSTRUMENT ABS NEUTROPHIL CT 5.8 K/uL; LYMPHOCYTE COUNT 0.9 K/uL (1.0-2.8); MCH 27.1 PG (29.0-34.0); MCV 84.5 FL (86-99); MONOCYTE (%) 17.5 % (3-12); MONOCYTE COUNT 1.5 K/uL (0-0.8); NEUTROPHIL COUNT 5.8 K/uL (1.8-6.4); RBC DIS.WIDTH-CV 16.5 % (11.8-14.6); RBC DIS.WIDTH-SD 51.1 % (39-53); RED BLOOD COUNT 3.36 M/uL (4.00-5.50); WHITE BLOOD COUNT 8.7 K/uL (4.1-10.2)
[2016-10-04 06:46] LABS: ANION GAP 12 MEQ/L (2-14); C-REACTIVE PROTEIN 114.6 MG/L (0-10); CHLORIDE 94 MEQ/L (99-109); GFR ESTIMATE (CALCULATED) > 59 mL/min/; GLUCOSE 120 mg/dL (70-99); MEAN PLAT.VOLUME 9.6 uM^3 (9.0-12.4); PLAT.SUFFICIENCY ADEQUATE; PLATELET COUNT 344 K/uL (156-360); POTASSIUM 4.6 MEQ/L (3.7-5.4); SAMPLE HEMOLYSIS CHECK 0; SAMPLE ICTERIC CHECK 0; SAMPLE LIPEMIA CHECK 0; SODIUM 131 MEQ/L (136-147); UREA NITROGEN (BUN) 9 mg/dL (9-23)
[2016-10-04 08:07] VITALS: BP 104/63
[2016-10-04 08:29] LABS: POINT-OF-CARE METER ID UU13113717
[2016-10-04 11:19] LABS: POINT-OF-CARE METER ID UU14174225
[2016-10-04 11:30] VITALS: BP 97/63
[2016-10-04 12:55] VITALS: BP 98/58
[2016-10-04 14:13] VITALS: BP 104/68
[2016-10-04 15:46] VITALS: BP 110/67
[2016-10-04 21:27] VITALS: BP 104/62
[2016-10-04 21:29] LABS: POINT-OF-CARE METER ID UU14188625
[2016-10-05 00:09] VITALS: BP 102/65
[2016-10-05 00:34] VITALS: BP 102/64
[2016-10-05 03:57] VITALS: BP 116/63
[2016-10-05 07:30] LABS: EOSINOPHIL (%) 2.8 % (0-5); EOSINOPHIL COUNT 0.4 K/uL (0-0.3); HEMATOCRIT 27.7 % (38.0-50.0); IMMATURE GRANULOCYTE (%) 1.6 % (0.0-0.7); IMMATURE GRANULOCYTE COUNT 0.2 K/uL; INSTRUMENT ABS NEUTROPHIL CT 8.8 K/uL; LYMPHOCYTE COUNT 0.9 K/uL (1.0-2.8); MCH 26.2 PG (29.0-34.0); MCHC 31.4 G/DL (30.0-36.0); MCV 83.4 FL (86-99); MEAN PLAT.VOLUME 9.4 uM^3 (9.0-12.4); MONOCYTE (%) 16.9 % (3-12); MONOCYTE COUNT 2.1 K/uL (0-0.8); NEUTROPHIL (%) 71.5 % (45-76); NEUTROPHIL COUNT 8.8 K/uL (1.8-6.4); PLATELET COUNT 424 K/uL (156-360); RBC DIS.WIDTH-SD 49.3 % (39-53); RED BLOOD COUNT 3.32 M/uL (4.00-5.50); WHITE BLOOD COUNT 12.3 K/uL (4.1-10.2)
[2016-10-05 07:57] LABS: ANION GAP 9 MEQ/L (2-14); CHLORIDE 94 MEQ/L (99-109); GFR ESTIMATE (CALCULATED) > 59 mL/min/; GLUCOSE 78 mg/dL (70-99); POTASSIUM 4.4 MEQ/L (3.7-5.4); SAMPLE HEMOLYSIS CHECK 0; SAMPLE ICTERIC CHECK 0; SAMPLE LIPEMIA CHECK 0; SODIUM 133 MEQ/L (136-147); UREA NITROGEN (BUN) 13 mg/dL (9-23)
[2016-10-05 08:25] LABS: POINT-OF-CARE METER ID UU14188625
[2016-10-05 08:27] VITALS: BP 120/79
[2016-10-05 16:00] VITALS: BP 124/73
[2016-10-05 23:45] VITALS: BP 98/56
[2016-10-06 06:14] LABS: EOSINOPHIL (%) 3.8 % (0-5); EOSINOPHIL COUNT 0.3 K/uL (0-0.3); HEMATOCRIT 25.7 % (38.0-50.0); IMMATURE GRANULOCYTE (%) 2.3 % (0.0-0.7); IMMATURE GRANULOCYTE COUNT 0.2 K/uL; INSTRUMENT ABS NEUTROPHIL CT 4.9 K/uL; MCH 25.8 PG (29.0-34.0); MCHC 31.1 G/DL (30.0-36.0); MCV 82.9 FL (86-99); MEAN PLAT.VOLUME 10.1 uM^3 (9.0-12.4); MONOCYTE (%) 22.8 % (3-12); MONOCYTE COUNT 1.9 K/uL (0-0.8); NEUTROPHIL (%) 58.5 % (45-76); NEUTROPHIL COUNT 4.9 K/uL (1.8-6.4); PLATELET COUNT 397 K/uL (156-360); RBC DIS.WIDTH-SD 48.4 % (39-53); WHITE BLOOD COUNT 8.4 K/uL (4.1-10.2)
[2016-10-06 07:00] LABS: ANION GAP 10 MEQ/L (2-14); CHLORIDE 93 MEQ/L (99-109); GFR ESTIMATE (CALCULATED) > 59 mL/min/; POTASSIUM 4.5 MEQ/L (3.7-5.4); SAMPLE HEMOLYSIS CHECK 0; SAMPLE ICTERIC CHECK 0; SAMPLE LIPEMIA CHECK 0; SODIUM 131 MEQ/L (136-147); UREA NITROGEN (BUN) 12 mg/dL (9-23)
[2016-10-06 07:11] LABS: GLUCOSE 100 mg/dL (70-99)
[2016-10-06 07:38] VITALS: BP 92/57
[2016-10-06 09:06] VITALS: BP 102/64
[2016-10-06] MEDS ORDERED: DILAUDID4 MG PO (16:01)
[2016-10-06 16:46] VITALS: BP 107/59
[2016-10-06 21:23] LABS: POINT-OF-CARE USER ID 603211116
[2016-10-06 23:34] VITALS: BP 110/65
[2016-10-07 07:23] LABS: ANION GAP 8 MEQ/L (2-14); CHLORIDE 92 MEQ/L (99-109); GFR ESTIMATE (CALCULATED) > 59 mL/min/; GLUCOSE 90 mg/dL (70-99); POTASSIUM 4.9 MEQ/L (3.7-5.4); SAMPLE HEMOLYSIS CHECK 0; SAMPLE ICTERIC CHECK 0; SAMPLE LIPEMIA CHECK 0; SODIUM 132 MEQ/L (136-147); UREA NITROGEN (BUN) 16 mg/dL (9-23)
[2016-10-07 08:24] VITALS: BP 102/59
[2016-10-07 08:51] LABS: POINT-OF-CARE METER ID UU14188625
[2016-10-07 08:58] VITALS: BP 115/69
[2016-10-07 12:50] LABS: POINT-OF-CARE METER ID UU14188625
[2016-10-07 12:53] VITALS: BP 98/56
[2016-10-07 16:22] VITALS: BP 122/55
[2016-10-07 17:33] LABS: POINT-OF-CARE METER ID UU14188625
[2016-10-07 23:29] VITALS: BP 110/60
[2016-10-08 08:00] VITALS: BP 112/65
[2016-10-08 08:22] VITALS: BP 102/61
[2016-10-08 08:42] LABS: POINT-OF-CARE METER ID UU14188625
[2016-10-08 11:50] VITALS: BP 105/60
[2016-10-08 12:57] LABS: POINT-OF-CARE METER ID UU14174225
[2016-10-08] MEDS ORDERED: FLUCONAZOLE200 MG PO (12:57)
[2016-10-08] MEDS ORDERED: ROCEPHIN 2 GM VI2 GM IM (12:58)
== END 2016-10-08 14:58 | disposition home health service (06) | DRG 372 ==
LOC: EME 20:41 → EDOF 09-29 04:06 → 5SOUTH 09-29 04:06 → ENRESERV 09-29 04:08 → EDOF 09-29 07:39 → ENRESERV 09-29 12:12 → 3EAST 09-29 13:11 → ENRESERV 10-01 15:24 → CANRESERV 10-01 15:24 → ENRESERV 10-01 15:49 → 5SOUTH 10-01 17:57
PROVIDERS: Emergency Medicine; Internal Medicine; Physician Assistant; Physician Assistant Medical; Student in an Organized Health Care Education/Training Program
PROC: 0W9G3ZZ Drainage of Peritoneal Cavity, Percutaneous Approach (ICD-10-PCS; principal; 2016-09-29)
PROC: 0W9G3ZZ Drainage of Peritoneal Cavity, Percutaneous Approach (ICD-10-PCS; 2016-10-05)
DX: K65.1 Peritoneal abscess (principal); R65.10 Systemic inflammatory response syndrome (SIRS) of non-infectious origin without acute organ dysfunction; E46 Unspecified protein-calorie malnutrition; R64 Cachexia; K56.60 Unspecified intestinal obstruction; K56.7 Ileus, unspecified; E87.1 Hypo-osmolality and hyponatremia; K86.0 Alcohol-induced chronic pancreatitis; F11.20 Opioid dependence, uncomplicated; A15.0 Tuberculosis of lung; E11.65 Type 2 diabetes mellitus with hyperglycemia; E11.43 Type 2 diabetes mellitus with diabetic autonomic (poly)neuropathy; K31.84 Gastroparesis; G89.4 Chronic pain syndrome; B96.20 Unspecified Escherichia coli [E. coli] as the cause of diseases classified elsewhere; F10.21 Alcohol dependence, in remission; D64.9 Anemia, unspecified; I10 Essential (primary) hypertension; J44.9 Chronic obstructive pulmonary disease, unspecified; K21.9 Gastro-esophageal reflux disease without esophagitis; K22.70 Barrett's esophagus without dysplasia; F31.9 Bipolar disorder, unspecified; F41.9 Anxiety disorder, unspecified; F17.200 Nicotine dependence, unspecified, uncomplicated; Z68.1 Body mass index [BMI] 19.9 or less, adult; Z79.4 Long term (current) use of insulin; Z85.01 Personal history of malignant neoplasm of esophagus; Z86.73 Personal history of transient ischemic attack (TIA), and cerebral infarction without residual deficits; Z87.01 Personal history of pneumonia (recurrent); Z87.11 Personal history of peptic ulcer disease; Z90.49 Acquired absence of other specified parts of digestive tract; Z91.19 Patient's noncompliance with other medical treatment and regimen; Z92.3 Personal history of irradiation; Z83.3 Family history of diabetes mellitus
CPT/HCPCS: 71010; 74000; 74177; 75989; 77012; 80048; 80053; 80306 90; 81003; 82140; 82150 91; 82378; 82803; 82948; 83605; 83690; 83735; 85014; 85018; 85025; 85027; 85610; 85730; 86140; 86900; 86901; 87070; 87075; 87077; 87106; 87116; 87186; 87205; 87206; 94640; 94640 76; 99202; 99281; 99284; C1769; C1894; C9113; G0480; J0696; J0744; J1170; J1815; J2270; J2405; J2543; J2765; J3010; J7030; J7050; S0030

== ENCOUNTER 2016-11-01 13:18 | Emergency (ER) | payer OTHER ==
[~2016-11-01] VITALS: Ht 182.9 cm; Wt 51.3 kg
[~2016-11-01 13:18] MED LIST changes: +FLUCONAZOLE200 MG PO; +ROCEPHIN 2 GM VI2 GM IM; +TOUJEO SOL300 UNIT/1 SC
[2016-11-01 14:45] LABS: HEMATOCRIT 35.6 % (38.0-50.0); MCH 25.3 PG (29.0-34.0); MCHC 31.2 G/DL (30.0-36.0); MCV 81.3 FL (86-99); RBC DIS.WIDTH-CV 15.9 % (11.8-14.6); RBC DIS.WIDTH-SD 46.9 % (39-53); RED BLOOD COUNT 4.38 M/uL (4.00-5.50); WHITE BLOOD COUNT 9.3 K/uL (4.1-10.2)
[2016-11-01 14:47] LABS: CHLORIDE 98 mEq/L (99-109); POTASSIUM 3.5 mEq/L (3.7-5.4); SODIUM 132 mEq/L (136-147)
[2016-11-01 14:49] LABS: GLUCOSE 150 mg/dL (70-99)
[2016-11-01 14:50] LABS: ANION GAP 13 MEQ/L (2-14)
[2016-11-01 14:51] LABS: TOTAL BILIRUBIN 0.5 mg/dL (0.0-1.0)
[2016-11-01 14:52] LABS: ALKALINE PHOSPHATASE 111 IU/L (3-129)
[2016-11-01 14:53] LABS: GFR ESTIMATE (CALCULATED) > 59 mL/min/
[2016-11-01 14:54] LABS: UREA NITROGEN (BUN) 9 mg/dL (9-23)
[2016-11-01 16:28] LABS: HEMATOLOGY COMMENT 1 SN; MEAN PLAT.VOLUME 8.8 uM^3 (9.0-12.4); PLAT.SUFFICIENCY ADEQUATE; PLATELET COUNT 425 K/uL (156-360)
[2016-11-01 17:55] VITALS: BP 122/72
== END 2016-11-01 17:55 | disposition home or self-care (01) ==
LOC: EME 13:18
DX: G89.29 Other chronic pain (principal); R10.9 Unspecified abdominal pain; R11.2 Nausea with vomiting, unspecified; R30.0 Dysuria; R00.0 Tachycardia, unspecified; I10 Essential (primary) hypertension; E11.9 Type 2 diabetes mellitus without complications; Z79.4 Long term (current) use of insulin; J44.9 Chronic obstructive pulmonary disease, unspecified; Z90.49 Acquired absence of other specified parts of digestive tract; Z85.01 Personal history of malignant neoplasm of esophagus; Z85.07 Personal history of malignant neoplasm of pancreas; F17.200 Nicotine dependence, unspecified, uncomplicated
CPT/HCPCS: 80053; 81003; 85027; 99281; 99285; J1885; J2405; J7030

== ENCOUNTER 2016-11-23 16:28 | Emergency (ER) | payer OTHER ==
[~2016-11-23] VITALS: Ht 182.9 cm; Wt 50.6 kg
[2016-11-23 16:40] VITALS: BP 106/71
[2016-11-23 18:14] LABS: HEMATOCRIT 38.9 % (38.0-50.0); MCH 24.3 PG (29.0-34.0); MCHC 30.3 G/DL (30.0-36.0); MCV 80.2 FL (86-99); MEAN PLAT.VOLUME 9.7 uM^3 (9.0-12.4); PLATELET COUNT 372 K/uL (156-360); RBC DIS.WIDTH-SD 46.8 % (39-53); RED BLOOD COUNT 4.85 M/uL (4.00-5.50); WHITE BLOOD COUNT 8.7 K/uL (4.1-10.2)
[2016-11-23 18:22] LABS: CHLORIDE 99 mEq/L (99-109); POTASSIUM 3.9 mEq/L (3.7-5.4); SODIUM 135 mEq/L (136-147)
[2016-11-23 18:25] LABS: GLUCOSE 214 mg/dL (70-99)
[2016-11-23 18:26] LABS: ANION GAP 11 MEQ/L (2-14)
[2016-11-23 18:27] LABS: TOTAL BILIRUBIN 0.2 mg/dL (0.0-1.0)
[2016-11-23 18:28] LABS: ALKALINE PHOSPHATASE 95 IU/L (3-129); GFR ESTIMATE (CALCULATED) > 59 mL/min/
[2016-11-23 18:29] LABS: UREA NITROGEN (BUN) 12 mg/dL (9-23)
[2016-11-23 18:37] LABS: ADD MIUA? NO; BILIRUBIN NEGATIVE; BLOOD NEGATIVE; COLOR YELLOW ((YELLOW)); GLUCOSE (STRIP) 150; KETONES NEGATIVE; LEUKOCYTES NEGATIVE; NITRITE NEGATIVE; PROTEIN (STRIP) NEGATIVE; UCUL ADDED? NO; UROBILINOGEN 0.2 MG/DL (0.2-1.0)
== END 2016-11-23 18:20 | disposition left against medical advice (07) ==
LOC: EME 16:28
DX: R10.9 Unspecified abdominal pain (principal); R11.2 Nausea with vomiting, unspecified; Z53.21 Procedure and treatment not carried out due to patient leaving prior to being seen by health care provider
CPT/HCPCS: 80053; 81003; 85027

== ENCOUNTER 2016-11-26 14:31 | Emergency (ER) | payer OTHER ==
[~2016-11-26] VITALS: Ht 182.9 cm; Wt 49.0 kg
[2016-11-26 15:21] LABS: HEMATOCRIT 42.1 % (38.0-50.0); MCH 24.4 PG (29.0-34.0); MCHC 30.4 G/DL (30.0-36.0); MCV 80.2 FL (86-99); MEAN PLAT.VOLUME 9.5 uM^3 (9.0-12.4); PLATELET COUNT 375 K/uL (156-360); RBC DIS.WIDTH-CV 16.3 % (11.8-14.6); RED BLOOD COUNT 5.25 M/uL (4.00-5.50); WHITE BLOOD COUNT 9.8 K/uL (4.1-10.2)
[2016-11-26 15:31] LABS: CHLORIDE 99 mEq/L (99-109); POTASSIUM 3.7 mEq/L (3.7-5.4); SODIUM 135 mEq/L (136-147)
[2016-11-26 15:33] LABS: GLUCOSE 146 mg/dL (70-99)
[2016-11-26 15:34] LABS: ANION GAP 12 MEQ/L (2-14)
[2016-11-26 15:35] LABS: TOTAL BILIRUBIN 0.2 mg/dL (0.0-1.0)
[2016-11-26 15:37] LABS: ALKALINE PHOSPHATASE 101 IU/L (3-129); GFR ESTIMATE (CALCULATED) > 59 mL/min/
[2016-11-26 15:38] LABS: UREA NITROGEN (BUN) 11 mg/dL (9-23)
[2016-11-26 16:11] LABS: ADD MIUA? YES; BILIRUBIN NEGATIVE; BLOOD NEGATIVE; COLOR YELLOW ((YELLOW)); GLUCOSE (STRIP) NEGATIVE; KETONES NEGATIVE; LEUKOCYTES TRACE; NITRITE NEGATIVE; PROTEIN (STRIP) 30; SPECIFIC GRAVITY 1.025 (1.000-1.030); UROBILINOGEN 0.2 MG/DL (0.2-1.0)
[2016-11-26 16:33] LABS: LIPASE 12 U/L (1.0-51.0)
[2016-11-26 16:40] LABS: BACTERIA NONE SEEN /HPF; CASTS NONE SEEN /LPF; CRYSTALS NONE SEEN; EPITHELIAL CELLS NONE SEEN /HPF; MUCUS RARE /LPF; RED BLOOD CELLS NONE SEEN /HPF (0-5); UCUL ADDED? NO; WHITE BLOOD CELLS 0-5 /HPF (0-5)
[2016-11-26] MEDS ORDERED: PERCOCET 5/31 TABLET PO (17:01)
[2016-11-26 17:23] VITALS: BP 114/81
== END 2016-11-26 17:24 | disposition home or self-care (01) ==
LOC: EME 14:31
DX: G89.29 Other chronic pain (principal); R10.13 Epigastric pain; E11.9 Type 2 diabetes mellitus without complications; Z79.4 Long term (current) use of insulin; I10 Essential (primary) hypertension; F17.200 Nicotine dependence, unspecified, uncomplicated; K21.9 Gastro-esophageal reflux disease without esophagitis; Z85.01 Personal history of malignant neoplasm of esophagus; Z85.07 Personal history of malignant neoplasm of pancreas; J44.9 Chronic obstructive pulmonary disease, unspecified; Z79.82 Long term (current) use of aspirin; F32.9 Major depressive disorder, single episode, unspecified; F41.9 Anxiety disorder, unspecified; Z86.73 Personal history of transient ischemic attack (TIA), and cerebral infarction without residual deficits
CPT/HCPCS: 80053; 81003; 83690; 85027; 99281; 99284; J3010

== ENCOUNTER 2016-11-28 05:46 | Emergency (ER) | payer OTHER ==
[~2016-11-28] VITALS: Ht 182.9 cm; Wt 47.9 kg
[2016-11-28 06:55] LABS: CHLORIDE 90 mEq/L (99-109); POTASSIUM 4.1 mEq/L (3.7-5.4); SODIUM 131 mEq/L (136-147)
[2016-11-28 06:57] LABS: GLUCOSE 205 mg/dL (70-99)
[2016-11-28 06:58] LABS: ANION GAP 14 MEQ/L (2-14)
[2016-11-28 06:59] LABS: TOTAL BILIRUBIN 0.2 mg/dL (0.0-1.0)
[2016-11-28 07:00] LABS: ALKALINE PHOSPHATASE 84 IU/L (3-129)
[2016-11-28 07:01] LABS: GFR ESTIMATE (CALCULATED) > 59 mL/min/
[2016-11-28 07:03] LABS: UREA NITROGEN (BUN) 27 mg/dL (9-23)
[2016-11-28 07:04] LABS: LIPASE 3 U/L (1.0-51.0)
[2016-11-28 08:16] LABS: MCH 24.5 PG (29.0-34.0); MCV 79.1 FL (86-99); MEAN PLAT.VOLUME 10.2 uM^3 (9.0-12.4); PLATELET COUNT 368 K/uL (156-360); RBC DIS.WIDTH-CV 16.7 % (11.8-14.6); RBC DIS.WIDTH-SD 47.5 % (39-53); RED BLOOD COUNT 5.06 M/uL (4.00-5.50); WHITE BLOOD COUNT 17.2 K/uL (4.1-10.2)
[2016-11-28 09:08] LABS: ADD MIUA? NO; BILIRUBIN NEGATIVE; BLOOD NEGATIVE; COLOR YELLOW ((YELLOW)); GLUCOSE (STRIP) NEGATIVE; KETONES 20; LEUKOCYTES NEGATIVE; NITRITE NEGATIVE; PROTEIN (STRIP) 30; SPECIFIC GRAVITY 1.043 (1.000-1.030); UROBILINOGEN 0.2 MG/DL (0.2-1.0)
[2016-11-28] MEDS ORDERED: ZOFRAN ODT4 MG PO (13:03)
[2016-11-28] MEDS ORDERED: BENTYL10 MG PO (13:04)
[2016-11-28 13:28] VITALS: BP 130/80
== END 2016-11-28 13:29 | disposition home or self-care (01) ==
LOC: EME 05:46
PROVIDERS: Nurse Practitioner Family
DX: K52.9 Noninfective gastroenteritis and colitis, unspecified (principal); K21.9 Gastro-esophageal reflux disease without esophagitis; J44.9 Chronic obstructive pulmonary disease, unspecified; I10 Essential (primary) hypertension; E11.9 Type 2 diabetes mellitus without complications; F41.9 Anxiety disorder, unspecified; F32.9 Major depressive disorder, single episode, unspecified; F31.9 Bipolar disorder, unspecified; Z85.01 Personal history of malignant neoplasm of esophagus; Z86.73 Personal history of transient ischemic attack (TIA), and cerebral infarction without residual deficits; F17.200 Nicotine dependence, unspecified, uncomplicated
CPT/HCPCS: 74177; 80053; 81003; 83690; 85027; 99281; 99285; J2405; J2765; J3010; J7030

== ENCOUNTER 2017-04-01 12:34 | Inpatient (IN) | payer OTHER ==
[~2017-04-01] VITALS: Ht 182.9 cm; Wt 50.6 kg
[2017-04-01] VITALS (9 sets, daily range): BP systolic 105–150; BP diastolic 71–82
[2017-04-01 13:28] LABS: HEMATOCRIT 29.6 % (38.0-50.0); HEMOGLOBIN 8.4 G/DL (12.5-16.6); MCH 19.9 PG (29.0-34.0); MCHC 28.4 G/DL (30.0-36.0); PLATELET COUNT 634 K/uL (156-360); RBC DIS.WIDTH-CV 23.9 % (11.8-14.6); RBC DIS.WIDTH-SD 59.1 % (39-53); RED BLOOD COUNT 4.23 M/uL (4.00-5.50); WHITE BLOOD COUNT 17.6 K/uL (4.1-10.2)
[2017-04-01 13:31] LABS: PTT 27.9 SEC (25-37)
[2017-04-01 13:50] LABS: ALBUMIN 4.1 G/DL (3.2-4.8); CHLORIDE 100 MEQ/L (99-109); SODIUM 131 MEQ/L (136-147); TOTAL BILIRUBIN 0.2 MG/DL (0.0-1.0)
[2017-04-01 13:56] LABS: ALKALINE PHOSPHATASE 114 IU/L (3-129); ALT (GPT) 8 IU/L (3-49); AST (GOT) 9 IU/L (2-34); CREATININE 0.9 MG/DL (0.6-1.3); GFR ESTIMATE (CALCULATED) > 59 mL/min/ (58.99-99999); GLUCOSE 143 mg/dL (70-99); TOTAL PROTEIN 7.5 G/DL (6.4-8.3); UREA NITROGEN (BUN) 27 mg/dL (9-23)
[2017-04-01 14:06] LABS: LIPASE 20 U/L (1.0-51.0)
[2017-04-01] MEDS ORDERED: VENTOLIN HFA18 GM IH (16:21)
[2017-04-01] MEDS ORDERED: NOVOLOG PE100 UNITS/ SC (16:25)
[2017-04-01] MEDS ORDERED: PROVENTIL HFA6.7 GM IH (16:26)
[2017-04-01] MEDS ORDERED: SYMBICORT60 INHALAT IH (16:29)
[2017-04-01] MEDS ORDERED: ZENPEP DR 20,01 EACH PO (16:30)
[2017-04-01] MEDS ORDERED: REGLAN10 MG PO (16:35)
[2017-04-01] MEDS ORDERED: EXCEDRIN EXTRA1 EACH PO (16:36)
[2017-04-01] MEDS ORDERED: DAILY VITE1 EAC1 PO (16:37)
[2017-04-01] MEDS ORDERED: AFRIN,GENASAL D15 ML BOTH NARES (16:38)
[2017-04-01] MEDS ORDERED: ESCITALOPRAM OX20 MG PO (16:42)
[2017-04-01 23:14] LABS: HEMOGLOBIN 9.8 G/DL (12.5-16.6); MCV 76.4 FL (86-99)
[2017-04-02 00:20] VITALS: BP 130/75
[2017-04-02 03:30] VITALS: BP 136/77
[2017-04-02 05:44] LABS: HEMATOCRIT 33.2 % (38.0-50.0); HEMOGLOBIN 9.8 G/DL (12.5-16.6); MCH 22.7 PG (29.0-34.0); MCHC 29.5 G/DL (30.0-36.0); MCV 76.9 FL (86-99); RBC DIS.WIDTH-CV 23.1 % (11.8-14.6); RBC DIS.WIDTH-SD 64.8 % (39-53); RED BLOOD COUNT 4.32 M/uL (4.00-5.50); WHITE BLOOD COUNT 9.5 K/uL (4.1-10.2)
[2017-04-02 05:58] LABS: PLAT.SUFFICIENCY ADEQUATE
[2017-04-02 05:59] LABS: PLATELET COUNT 315 K/uL (156-360)
[2017-04-02 07:22] VITALS: BP 123/68
[2017-04-02 09:28] LABS: CHLORIDE 108 MEQ/L (99-109); CREATININE 0.6 MG/DL (0.6-1.3); GFR ESTIMATE (CALCULATED) > 59 mL/min/ (58.99-99999); POTASSIUM 4.2 MEQ/L (3.7-5.4); SODIUM 136 MEQ/L (136-147); UREA NITROGEN (BUN) 15 mg/dL (9-23)
[2017-04-02 09:34] LABS: GLUCOSE 105 mg/dL (70-99)
[2017-04-02 11:14] LABS: HEMATOCRIT 32.7 % (38.0-50.0); HEMOGLOBIN 9.8 G/DL (12.5-16.6); MCV 76.4 FL (86-99)
[2017-04-02] MEDS ORDERED: DILAUDID IV (11:44)
[2017-04-02] MEDS ORDERED: MARCAINE IV (11:51)
[2017-04-02 12:03] VITALS: BP 139/81
[2017-04-02 12:03] LABS: FOLIC ACID (FOLATE) 16.7 NG/ML (5.0-22.0)
[2017-04-02 16:45] LABS: HEMATOCRIT 36.7 % (38.0-50.0); MCV 76.8 FL (86-99)
[2017-04-02 20:53] VITALS: BP 127/73
[2017-04-02 23:24] LABS: HEMATOCRIT 31.6 % (38.0-50.0); HEMOGLOBIN 9.8 G/DL (12.5-16.6); MCV 75.6 FL (86-99)
[2017-04-03] VITALS: BP 130/76
[2017-04-03 05:59] LABS: HEMATOCRIT 31.3 % (38.0-50.0); HEMOGLOBIN 9.5 G/DL (12.5-16.6); MCH 23.4 PG (29.0-34.0); MCHC 30.4 G/DL (30.0-36.0); MCV 77.1 FL (86-99); PLATELET COUNT 319 K/uL (156-360); RBC DIS.WIDTH-CV 23.5 % (11.8-14.6); RBC DIS.WIDTH-SD 65.9 % (39-53); RED BLOOD COUNT 4.06 M/uL (4.00-5.50); WHITE BLOOD COUNT 7.9 K/uL (4.1-10.2)
[2017-04-03 06:04] LABS: BASOPHIL (%) 0.4 % (0-1); EOSINOPHIL (%) 3.9 % (0-5); EOSINOPHIL COUNT 0.3 K/uL (0-0.3); IMMATURE GRANULOCYTE (%) 0.3 % (0.0-0.7); LYMPHOCYTE (%) 10.9 % (15-42); LYMPHOCYTE COUNT 0.9 K/uL (1.0-2.8); MONOCYTE (%) 16.9 % (3-12); MONOCYTE COUNT 1.3 K/uL (0-0.8); NEUTROPHIL (%) 67.6 % (45-76); NEUTROPHIL COUNT 5.4 K/uL (1.8-6.4)
[2017-04-03 06:14] LABS: CHLORIDE 102 MEQ/L (99-109); CREATININE 0.5 MG/DL (0.6-1.3); GFR ESTIMATE (CALCULATED) > 59 mL/min/ (58.99-99999); GLUCOSE 130 mg/dL (70-99); SODIUM 138 MEQ/L (136-147); UREA NITROGEN (BUN) 7 mg/dL (9-23)
[2017-04-03 06:15] LABS: POTASSIUM 3.3 MEQ/L (3.7-5.4)
[2017-04-03 07:23] VITALS: BP 163/82
[2017-04-03 11:04] LABS: HEMATOCRIT 31.9 % (38.0-50.0); HEMOGLOBIN 9.4 G/DL (12.5-16.6); MCV 76.9 FL (86-99)
[2017-04-03 17:47] VITALS: BP 131/71
[2017-04-03 18:20] LABS: HEMATOCRIT 31.9 % (38.0-50.0); HEMOGLOBIN 9.5 G/DL (12.5-16.6)
[2017-04-03 19:21] VITALS: BP 136/90
[2017-04-03 22:12] VITALS: BP 128/74
[2017-04-03 22:29] LABS: HEMATOCRIT 29.4 % (38.0-50.0); HEMOGLOBIN 8.7 G/DL (12.5-16.6); MCV 77.8 FL (86-99)
[2017-04-04 05:45] VITALS: BP 145/94
[2017-04-04 06:17] LABS: CHLORIDE 104 MEQ/L (99-109); CREATININE 0.4 MG/DL (0.6-1.3); GFR ESTIMATE (CALCULATED) > 59 mL/min/ (58.99-99999); GLUCOSE 167 mg/dL (70-99); SODIUM 135 MEQ/L (136-147); UREA NITROGEN (BUN) 4 mg/dL (9-23)
[2017-04-04 06:18] LABS: POTASSIUM 4.2 MEQ/L (3.7-5.4)
[2017-04-04 06:31] LABS: HEMATOCRIT 29.6 % (38.0-50.0); HEMOGLOBIN 8.6 G/DL (12.5-16.6); MCH 22.6 PG (29.0-34.0); MCHC 29.1 G/DL (30.0-36.0); MCV 77.9 FL (86-99); PLATELET COUNT 340 K/uL (156-360); RBC DIS.WIDTH-CV 24.2 % (11.8-14.6); RBC DIS.WIDTH-SD 68.4 % (39-53); WHITE BLOOD COUNT 7.9 K/uL (4.1-10.2)
[2017-04-04 07:06] VITALS: BP 151/86
[2017-04-04] MEDS ORDERED: CARAFATE1 GM PO (11:14)
[2017-04-04] MEDS ORDERED: PANTOPRAZOLE SO40 MG PO (11:14)
[2017-04-04] MEDS ORDERED: DILAUDID4 MG PO (11:15)
[2017-04-04 11:19] LABS: HEMATOCRIT 33.4 % (38.0-50.0); HEMOGLOBIN 9.7 G/DL (12.5-16.6); MCV 78.4 FL (86-99)
[2017-04-04] MEDS ORDERED: ONDANSETRON HCL4 MG PO (11:28)
[2017-04-04 12:18] VITALS: BP 135/74
== END 2017-04-04 13:06 | disposition home or self-care (01) | DRG 327 ==
LOC: EME 12:34 → 4EAST 14:53 → EDOF 14:53 → ENRESERV 14:56 → 4EAST 17:10
PROVIDERS: Emergency Medicine; Family Medicine; Hospitalist; Internal Medicine Gastroenterology
DX: K25.4 Chronic or unspecified gastric ulcer with hemorrhage (principal); K86.0 Alcohol-induced chronic pancreatitis; D62 Acute posthemorrhagic anemia; K31.84 Gastroparesis; E11.43 Type 2 diabetes mellitus with diabetic autonomic (poly)neuropathy; E87.2 Acidosis; K22.70 Barrett's esophagus without dysplasia; F17.200 Nicotine dependence, unspecified, uncomplicated; E87.6 Hypokalemia; I10 Essential (primary) hypertension; K21.9 Gastro-esophageal reflux disease without esophagitis; G89.29 Other chronic pain; K64.8 Other hemorrhoids; F10.21 Alcohol dependence, in remission; Z87.11 Personal history of peptic ulcer disease; Z86.73 Personal history of transient ischemic attack (TIA), and cerebral infarction without residual deficits; Z86.11 Personal history of tuberculosis; Z90.49 Acquired absence of other specified parts of digestive tract; Z79.899 Other long term (current) drug therapy; Z85.01 Personal history of malignant neoplasm of esophagus; Z79.51 Long term (current) use of inhaled steroids; Z79.4 Long term (current) use of insulin
CPT/HCPCS: 74177; 80048; 80053; 82607; 82728; 82746; 82948; 83605; 83690; 85014; 85018; 85025; 85027; 85610; 85730; 86850; 86900; 86901; 86920; 88305; 88342 TC; 94640 76; 94760; 99202; 99281; 99285; C9113; J1170; J1815; J2250; J2270; J2405; J7030; P9016

== ENCOUNTER 2017-07-26 09:49 | Emergency (ER) | payer OTHER ==
[~2017-07-26] VITALS: Ht 182.9 cm; Wt 50.6 kg
[~2017-07-26 09:49] MED LIST changes: +DILAUDID IV; +ESCITALOPRAM OX20 MG PO; +MARCAINE IV; +SYMBICORT60 INHALAT IH
[2017-07-26 10:35] LABS: HEMATOCRIT 38.8 % (38.0-50.0); HEMOGLOBIN 12.4 G/DL (12.5-16.6); MCH 25.9 PG (29.0-34.0); MCV 81.2 FL (86-99); PLATELET COUNT 390 K/uL (156-360); RBC DIS.WIDTH-SD 58.9 % (39-53); RED BLOOD COUNT 4.78 M/uL (4.00-5.50); WHITE BLOOD COUNT 11.3 K/uL (4.1-10.2)
[2017-07-26 10:44] LABS: CHLORIDE 96 mEq/L (99-109); POTASSIUM 3.5 mEq/L (3.7-5.4); SODIUM 139 mEq/L (136-147)
[2017-07-26 10:46] LABS: GLUCOSE 140 mg/dL (70-99)
[2017-07-26 10:47] LABS: TOTAL PROTEIN 7.9 g/dL (6.4-8.3)
[2017-07-26 10:48] LABS: TOTAL BILIRUBIN 0.2 mg/dL (0.0-1.0)
[2017-07-26 10:50] LABS: ALKALINE PHOSPHATASE 129 IU/L (3-129); CREATININE 0.8 mg/dL (0.6-1.3); GFR ESTIMATE (CALCULATED) > 59 mL/min/ (58.99-99999)
[2017-07-26 10:51] LABS: UREA NITROGEN (BUN) 9 mg/dL (9-23)
[2017-07-26 10:52] LABS: AST (GOT) 10 IU/L (2-34)
[2017-07-26 10:53] LABS: ALT (GPT) 12 IU/L (3-49); LIPASE 12 U/L (1.0-51.0)
[2017-07-26 11:50] LABS: APPEARANCE CLEAR ((CLEAR)); BILIRUBIN NEGATIVE; BLOOD NEGATIVE; COLOR YELLOW ((YELLOW)); GLUCOSE (STRIP) NEGATIVE; KETONES 20; LEUKOCYTES NEGATIVE; NITRITE NEGATIVE; PROTEIN (STRIP) 30; UCUL ADDED? NO; UROBILINOGEN 0.2 MG/DL (0.2-1.0)
[2017-07-26 12:24] VITALS: BP 189/96
== END 2017-07-26 12:51 | disposition home or self-care (01) ==
LOC: EME 09:49
DX: R10.13 Epigastric pain (principal); G89.29 Other chronic pain; E11.43 Type 2 diabetes mellitus with diabetic autonomic (poly)neuropathy; K31.84 Gastroparesis; K22.70 Barrett's esophagus without dysplasia; K21.9 Gastro-esophageal reflux disease without esophagitis; I10 Essential (primary) hypertension; J44.9 Chronic obstructive pulmonary disease, unspecified; F31.9 Bipolar disorder, unspecified; F41.9 Anxiety disorder, unspecified; F32.9 Major depressive disorder, single episode, unspecified; F17.200 Nicotine dependence, unspecified, uncomplicated; Z85.01 Personal history of malignant neoplasm of esophagus; Z87.19 Personal history of other diseases of the digestive system; Z86.73 Personal history of transient ischemic attack (TIA), and cerebral infarction without residual deficits; Z87.11 Personal history of peptic ulcer disease; Z90.49 Acquired absence of other specified parts of digestive tract; Z79.4 Long term (current) use of insulin
CPT/HCPCS: 80053; 81003; 83690; 85027; 99281; 99285; J2405; J3010; J7030

== ENCOUNTER 2017-08-03 16:11 | Emergency (ER) | payer OTHER ==
[~2017-08-03] VITALS: Ht 182.9 cm; Wt 49.4 kg
[2017-08-03 16:39] LABS: HEMOGLOBIN 12.1 G/DL (12.5-16.6); MCH 26.7 PG (29.0-34.0); MCHC 31.8 G/DL (30.0-36.0); MCV 83.7 FL (86-99); PLATELET COUNT 496 K/uL (156-360); RBC DIS.WIDTH-CV 19.8 % (11.8-14.6); RBC DIS.WIDTH-SD 61.2 % (39-53); RED BLOOD COUNT 4.54 M/uL (4.00-5.50); WHITE BLOOD COUNT 13.8 K/uL (4.1-10.2)
[2017-08-03 16:49] LABS: ALBUMIN 4.2 g/dL (3.2-4.8); CHLORIDE 102 mEq/L (99-109); POTASSIUM 4.3 mEq/L (3.7-5.4); SODIUM 139 mEq/L (136-147)
[2017-08-03 16:51] LABS: GLUCOSE 78 mg/dL (70-99)
[2017-08-03 16:52] LABS: TOTAL PROTEIN 8.2 g/dL (6.4-8.3)
[2017-08-03 16:53] LABS: TOTAL BILIRUBIN 0.2 mg/dL (0.0-1.0)
[2017-08-03 16:55] LABS: ALKALINE PHOSPHATASE 132 IU/L (3-129); GFR ESTIMATE (CALCULATED) > 59 mL/min/ (58.99-99999)
[2017-08-03 16:56] LABS: UREA NITROGEN (BUN) 17 mg/dL (9-23)
[2017-08-03 16:57] LABS: AST (GOT) 12 IU/L (2-34)
[2017-08-03 16:58] LABS: ALT (GPT) 12 IU/L (3-49)
[2017-08-03 17:40] LABS: APPEARANCE CLEAR ((CLEAR)); BILIRUBIN NEGATIVE; BLOOD NEGATIVE; COLOR YELLOW ((YELLOW)); GLUCOSE (STRIP) NEGATIVE; KETONES NEGATIVE; LEUKOCYTES NEGATIVE; NITRITE NEGATIVE; PROTEIN (STRIP) 30; SPECIFIC GRAVITY 1.034 (1.000-1.030); UCUL ADDED? NO; UROBILINOGEN 0.2 MG/DL (0.2-1.0)
[2017-08-03 18:25] LABS: LIPASE 14 U/L (1.0-51.0)
[2017-08-03] MEDS ORDERED: DILAUDID4 MG PO (19:15)
[2017-08-03] MEDS ORDERED: ZOFRAN4 MG PO (19:16)
[2017-08-03 19:32] VITALS: BP 156/94
== END 2017-08-03 19:32 | disposition home or self-care (01) ==
LOC: EME 16:11
DX: R10.10 Upper abdominal pain, unspecified (principal); G89.29 Other chronic pain; M54.9 Dorsalgia, unspecified; R11.0 Nausea; J44.9 Chronic obstructive pulmonary disease, unspecified; I10 Essential (primary) hypertension; E11.9 Type 2 diabetes mellitus without complications; Z79.4 Long term (current) use of insulin; Z90.49 Acquired absence of other specified parts of digestive tract; Z45.1 Encounter for adjustment and management of infusion pump; Z85.01 Personal history of malignant neoplasm of esophagus; Z86.73 Personal history of transient ischemic attack (TIA), and cerebral infarction without residual deficits; F17.200 Nicotine dependence, unspecified, uncomplicated
CPT/HCPCS: 80053; 81003; 83690; 85027; 99281; 99284

== ENCOUNTER 2017-08-12 13:30 | Inpatient (IN) | payer OTHER ==
[2017-08-12] VITALS (8 sets, daily range): BP systolic 118–168; BP diastolic 68–86
[~2017-08-12] VITALS: Ht 182.9 cm; Wt 52.2 kg
[2017-08-12 13:51] LABS: HEMATOCRIT 26.6 % (38.0-50.0); MCH 26.9 PG (29.0-34.0); MCHC 31.6 G/DL (30.0-36.0); MCV 85.3 FL (86-99); PLATELET COUNT 468 K/uL (156-360); RBC DIS.WIDTH-CV 19.6 % (11.8-14.6); RBC DIS.WIDTH-SD 60.8 % (39-53); WHITE BLOOD COUNT 12.9 K/uL (4.1-10.2)
[2017-08-12 13:54] LABS: ALBUMIN 3.9 g/dL (3.2-4.8)
[2017-08-12 13:55] LABS: CHLORIDE 103 mEq/L (99-109); HEMOGLOBIN 8.4 G/DL (12.5-16.6); POTASSIUM 4.1 mEq/L (3.7-5.4); RED BLOOD COUNT 3.12 M/uL (4.00-5.50); SODIUM 139 mEq/L (136-147)
[2017-08-12 13:57] LABS: GLUCOSE 129 mg/dL (70-99); TOTAL PROTEIN 7.1 g/dL (6.4-8.3)
[2017-08-12 13:59] LABS: TOTAL BILIRUBIN 0.2 mg/dL (0.0-1.0)
[2017-08-12 14:00] LABS: ALKALINE PHOSPHATASE 110 IU/L (3-129)
[2017-08-12 14:01] LABS: GFR ESTIMATE (CALCULATED) > 59 mL/min/ (58.99-99999)
[2017-08-12 14:02] LABS: AST (GOT) 10 IU/L (2-34); UREA NITROGEN (BUN) 28 mg/dL (9-23)
[2017-08-12 14:04] LABS: ALT (GPT) 11 IU/L (3-49)
[2017-08-12 14:26] LABS: APPEARANCE CLEAR ((CLEAR)); BILIRUBIN NEGATIVE; BLOOD NEGATIVE; COLOR YELLOW ((YELLOW)); GLUCOSE (STRIP) NEGATIVE; KETONES NEGATIVE; LEUKOCYTES NEGATIVE; NITRITE NEGATIVE; PROTEIN (STRIP) NEGATIVE; SPECIFIC GRAVITY 1.033 (1.000-1.030); UCUL ADDED? NO; UROBILINOGEN 0.2 MG/DL (0.2-1.0)
[2017-08-12 15:15] LABS: PTT 30.8 SEC (25-37)
[2017-08-12 15:34] LABS: AMPHETAMINE NEGATIVE (500 ng/mL); BARBITURATES NEGATIVE (200 ng/mL); BENZODIAZEPINES NEGATIVE (150 ng/mL); BUPRENORPHINE NEGATIVE (10 ng/mL); COCAINE NEGATIVE (150 ng/mL); METHADONE NEGATIVE (200 ng/mL); METHAMPHETAMINE NEGATIVE (500 ng/mL); OPIATES (MORPHINE) PRESUMPTIVE POSITIVE (100 ng/mL); OXYCODONE NEGATIVE (100 ng/mL); PHENCYCLIDINE NEGATIVE (25 ng/mL); PROPOXYPHENE NEGATIVE (300 ng/mL); THC CANNABINOIDS NEGATIVE (50 ng/mL); TRICYCLIC ANTIDEPRESSANTS NEGATIVE (300 ng/mL)
[2017-08-12 15:59] LABS: SERUM ETHYL ALCOHOL < 10 mg/dL
[2017-08-12 16:02] LABS: DIRECT BILIRUBIN 0.1 mg/dL (0.0-0.3); LIPASE 16 U/L (1.0-51.0)
[2017-08-12] MEDS ORDERED: DILAUDID 44 MG/1 M1 IV (17:55)
[2017-08-12 20:00] LABS: HEMATOCRIT 25.4 % (38.0-50.0); HEMOGLOBIN 8.2 G/DL (12.5-16.6); MCV 85.5 FL (86-99)
[2017-08-13] VITALS (13 sets, daily range): BP systolic 103–184; BP diastolic 75–90
[2017-08-13 01:03] LABS: HEMATOCRIT 29.1 % (38.0-50.0); HEMOGLOBIN 9.5 G/DL (12.5-16.6); MCH 28.3 PG (29.0-34.0); MCHC 32.6 G/DL (30.0-36.0); MCV 86.6 FL (86-99); RBC DIS.WIDTH-CV 17.7 % (11.8-14.6); RBC DIS.WIDTH-SD 56.3 % (39-53); RED BLOOD COUNT 3.36 M/uL (4.00-5.50); WHITE BLOOD COUNT 11.7 K/uL (4.1-10.2)
[2017-08-13 02:39] LABS: PLAT.SUFFICIENCY ADEQUATE
[2017-08-13 05:11] LABS: PLATELET COUNT 321 K/uL (156-360)
[2017-08-13 08:56] LABS: HEMATOCRIT 28.3 % (38.0-50.0); HEMOGLOBIN 9.1 G/DL (12.5-16.6); MCV 86.8 FL (86-99)
[2017-08-13 09:15] LABS: ALBUMIN 3.3 G/DL (3.2-4.8); ALKALINE PHOSPHATASE 87 IU/L (3-129); ALT (GPT) 10 IU/L (3-49); AST (GOT) 10 IU/L (2-34); CHLORIDE 109 MEQ/L (99-109); GLUCOSE 136 mg/dL (70-99); POTASSIUM 4.1 MEQ/L (3.7-5.4); SODIUM 142 MEQ/L (136-147); TOTAL BILIRUBIN 0.3 MG/DL (0.0-1.0); TOTAL PROTEIN 5.6 G/DL (6.4-8.3); UREA NITROGEN (BUN) 10 mg/dL (9-23)
[2017-08-13 09:17] LABS: CREATININE 0.5 MG/DL (0.6-1.3); GFR ESTIMATE (CALCULATED) > 59 mL/min/ (58.99-99999)
[2017-08-13 22:57] LABS: HEMATOCRIT 25.4 % (38.0-50.0); HEMOGLOBIN 8.3 G/DL (12.5-16.6); MCH 28.1 PG (29.0-34.0); MCHC 32.7 G/DL (30.0-36.0); MCV 86.1 FL (86-99); PLATELET COUNT 412 K/uL (156-360); RBC DIS.WIDTH-CV 18.3 % (11.8-14.6); RBC DIS.WIDTH-SD 57.4 % (39-53); RED BLOOD COUNT 2.95 M/uL (4.00-5.50); WHITE BLOOD COUNT 9.4 K/uL (4.1-10.2)
[2017-08-13 23:19] LABS: TROP-I INTERPRETATION NEGATIVE; TROPONIN-I < 0.01 ng/mL (0.0-0.30)
[2017-08-14] VITALS (7 sets, daily range): BP systolic 118–139; BP diastolic 64–82
== END 2017-08-14 05:58 | disposition short-term general hospital (02) | DRG 378 ==
LOC: EME 13:30 → 2EAST 17:37 → EDOF 17:37 → 4EAST 17:37 → ENRESERV 17:53 → 2EAST 19:51 → ENRESERV 08-13 23:04 → 4EAST 08-13 23:09
PROVIDERS: Emergency Medicine; Internal Medicine
PROC: 0DB38ZX Excision of Lower Esophagus, Via Natural or Artificial Opening Endoscopic, Diagnostic (ICD-10-PCS; principal; 2017-08-12)
PROC: 30233N1 Transfusion of Nonautologous Red Blood Cells into Peripheral Vein, Percutaneous Approach (ICD-10-PCS; 2017-08-12)
PROC: 0DB78ZX Excision of Stomach, Pylorus, Via Natural or Artificial Opening Endoscopic, Diagnostic (ICD-10-PCS; 2017-08-13)
DX: K25.4 Chronic or unspecified gastric ulcer with hemorrhage (principal); K26.9 Duodenal ulcer, unspecified as acute or chronic, without hemorrhage or perforation; K22.70 Barrett's esophagus without dysplasia; K31.84 Gastroparesis; K86.0 Alcohol-induced chronic pancreatitis; F10.21 Alcohol dependence, in remission; G89.29 Other chronic pain; K64.8 Other hemorrhoids; J43.9 Emphysema, unspecified; K21.9 Gastro-esophageal reflux disease without esophagitis; I10 Essential (primary) hypertension; J45.909 Unspecified asthma, uncomplicated; F31.9 Bipolar disorder, unspecified; F11.20 Opioid dependence, uncomplicated; F41.9 Anxiety disorder, unspecified; D50.0 Iron deficiency anemia secondary to blood loss (chronic); E11.43 Type 2 diabetes mellitus with diabetic autonomic (poly)neuropathy; F17.210 Nicotine dependence, cigarettes, uncomplicated; Z85.01 Personal history of malignant neoplasm of esophagus; Z86.73 Personal history of transient ischemic attack (TIA), and cerebral infarction without residual deficits; Z90.411 Acquired partial absence of pancreas; Z83.3 Family history of diabetes mellitus; Z79.4 Long term (current) use of insulin; K86.81 Exocrine pancreatic insufficiency
CPT/HCPCS: 80048; 80053; 80069; 80076; 81003; 82248; 82948; 83690; 84484; 84999; 85014; 85018; 85027; 85610; 85730; 86850; 86900; 86901; 86920; 88305; 88342 TC; 93005; 94640; 94760; 94799; 99281; 99285; C9113; G0480; J0780; J1170; J2250; J2405; J3010; J7030; J7050; P9016

== ENCOUNTER 2017-08-19 14:59 | Emergency (ER) | payer OTHER ==
[~2017-08-19] VITALS: Ht 182.9 cm; Wt 48.8 kg
[~2017-08-19 14:59] MED LIST changes: +DILAUDID 44 MG/1 M1 IV
[2017-08-19 16:57] LABS: ALBUMIN 3.5 g/dL (3.2-4.8)
[2017-08-19 16:58] LABS: CHLORIDE 97 mEq/L (99-109); POTASSIUM 4.9 mEq/L (3.7-5.4); SODIUM 134 mEq/L (136-147)
[2017-08-19 17:00] LABS: GLUCOSE 86 mg/dL (70-99); TOTAL PROTEIN 6.8 g/dL (6.4-8.3)
[2017-08-19 17:02] LABS: TOTAL BILIRUBIN 0.2 mg/dL (0.0-1.0)
[2017-08-19 17:03] LABS: ALKALINE PHOSPHATASE 117 IU/L (3-129)
[2017-08-19 17:04] LABS: CREATININE 0.8 mg/dL (0.6-1.3); GFR ESTIMATE (CALCULATED) > 59 mL/min/ (58.99-99999)
[2017-08-19 17:05] LABS: AST (GOT) 29 IU/L (2-34); UREA NITROGEN (BUN) 14 mg/dL (9-23)
[2017-08-19 17:07] LABS: ALT (GPT) 16 IU/L (3-49)
[2017-08-19 17:13] LABS: HEMATOCRIT 29.5 % (38.0-50.0); HEMOGLOBIN 9.6 G/DL (12.5-16.6); MCH 29.5 PG (29.0-34.0); MCHC 32.5 G/DL (30.0-36.0); MCV 90.8 FL (86-99); PLATELET COUNT 395 K/uL (156-360); RBC DIS.WIDTH-SD 56.5 % (39-53); RED BLOOD COUNT 3.25 M/uL (4.00-5.50); WHITE BLOOD COUNT 10.4 K/uL (4.1-10.2)
[2017-08-19] MEDS ORDERED: SPIRIVA RESPIMAT4 GM IH (19:09)
[2017-08-19] MEDS ORDERED: SUCRALFATE1 GM PO (19:10)
[2017-08-19] MEDS ORDERED: TOUJEO SOL300 UNIT/1 SC ×2 (19:15→19:16)
[2017-08-19] MEDS ORDERED: PROTONIX40 MG PO (19:19)
[2017-08-19 20:48] VITALS: BP 160/97
[2017-08-19 21:00] VITALS: BP 155/95
[2017-08-19 21:45] VITALS: BP 160/97
[2017-08-19 22:45] VITALS: BP 164/99
[2017-08-19 23:42] VITALS: BP 164/99
== END 2017-08-19 23:47 | disposition short-term general hospital (02) ==
LOC: EME 14:59
PROVIDERS: Nurse Practitioner Family
DX: K92.2 Gastrointestinal hemorrhage, unspecified (principal); I10 Essential (primary) hypertension; J44.9 Chronic obstructive pulmonary disease, unspecified; K22.70 Barrett's esophagus without dysplasia; K21.9 Gastro-esophageal reflux disease without esophagitis; F32.9 Major depressive disorder, single episode, unspecified; F41.9 Anxiety disorder, unspecified; F17.200 Nicotine dependence, unspecified, uncomplicated; Z79.4 Long term (current) use of insulin; Z92.89 Personal history of other medical treatment; Z98.890 Other specified postprocedural states; Z94.5 Skin transplant status; Z87.19 Personal history of other diseases of the digestive system; Z87.11 Personal history of peptic ulcer disease; Z86.79 Personal history of other diseases of the circulatory system; Z86.73 Personal history of transient ischemic attack (TIA), and cerebral infarction without residual deficits; Z85.01 Personal history of malignant neoplasm of esophagus; Z90.411 Acquired partial absence of pancreas; Z90.49 Acquired absence of other specified parts of digestive tract
CPT/HCPCS: 74177; 80053; 85027; 86850; 86900; 86901; 86920; 93005; 99281; 99285; C9113; J2270; J2405; J2765; J7030; P9016

== ENCOUNTER 2017-09-09 14:43 | Emergency (ER) | payer OTHER ==
[~2017-09-09] VITALS: Ht 182.9 cm; Wt 51.0 kg
[~2017-09-09 14:43] MED LIST changes: +SPIRIVA RESPIMAT4 GM IH
[2017-09-09 15:22] LABS: HEMATOCRIT 35.7 % (38.0-50.0); HEMOGLOBIN 11.4 G/DL (12.5-16.6); MCH 28.4 PG (29.0-34.0); MCHC 31.9 G/DL (30.0-36.0); PLATELET COUNT 366 K/uL (156-360); RBC DIS.WIDTH-SD 49.4 % (39-53); WHITE BLOOD COUNT 12.6 K/uL (4.1-10.2)
[2017-09-09 15:24] LABS: RED BLOOD COUNT 4.01 M/uL (4.00-5.50)
[2017-09-09 15:30] LABS: ALBUMIN 3.7 g/dL (3.2-4.8); CHLORIDE 101 mEq/L (99-109); POTASSIUM 4.5 mEq/L (3.7-5.4); SODIUM 137 mEq/L (136-147)
[2017-09-09 15:33] LABS: GLUCOSE 96 mg/dL (70-99)
[2017-09-09 15:35] LABS: TOTAL BILIRUBIN 0.3 mg/dL (0.0-1.0)
[2017-09-09 15:36] LABS: ALKALINE PHOSPHATASE 114 IU/L (3-129); CREATININE 0.9 mg/dL (0.6-1.3); GFR ESTIMATE (CALCULATED) > 59 mL/min/ (58.99-99999)
[2017-09-09 15:36] LABS: APPEARANCE CLEAR ((CLEAR)); BILIRUBIN NEGATIVE; BLOOD NEGATIVE; COLOR YELLOW ((YELLOW)); GLUCOSE (STRIP) NEGATIVE; KETONES NEGATIVE; LEUKOCYTES NEGATIVE; NITRITE NEGATIVE; PROTEIN (STRIP) NEGATIVE; SPECIFIC GRAVITY 1.021 (1.000-1.030); UCUL ADDED? NO; UROBILINOGEN 0.2 MG/DL (0.2-1.0)
[2017-09-09 15:37] LABS: UREA NITROGEN (BUN) 19 mg/dL (9-23)
[2017-09-09 15:38] LABS: AST (GOT) 17 IU/L (2-34)
[2017-09-09 15:39] LABS: ALT (GPT) 17 IU/L (3-49)
[2017-09-09] MEDS ORDERED: PERCOCET 5/31 TABLET PO (17:26)
[2017-09-09 17:53] VITALS: BP 129/81
== END 2017-09-09 17:56 | disposition home or self-care (01) ==
LOC: EME 14:43
DX: S20.211A Contusion of right front wall of thorax, initial encounter (principal); W01.198A Fall on same level from slipping, tripping and stumbling with subsequent striking against other object, initial encounter; Y92.009 Unspecified place in unspecified non-institutional (private) residence as the place of occurrence of the external cause; J44.9 Chronic obstructive pulmonary disease, unspecified; I10 Essential (primary) hypertension; E11.9 Type 2 diabetes mellitus without complications; Z79.4 Long term (current) use of insulin; G89.29 Other chronic pain; Z97.8 Presence of other specified devices; Z90.411 Acquired partial absence of pancreas; Z86.73 Personal history of transient ischemic attack (TIA), and cerebral infarction without residual deficits; Z85.01 Personal history of malignant neoplasm of esophagus; Z85.07 Personal history of malignant neoplasm of pancreas; F17.200 Nicotine dependence, unspecified, uncomplicated
CPT/HCPCS: 71101; 80053; 81003; 85027; 99281; 99285

== ENCOUNTER 2017-10-01 19:39 | Inpatient (IN) | payer OTHER ==
[~2017-10-01] VITALS: Ht 182.9 cm; Wt 51.0 kg
[2017-10-01 20:13] LABS: HEMOGLOBIN 12.2 G/DL (12.5-16.6); MCH 27.8 PG (29.0-34.0); MCHC 31.3 G/DL (30.0-36.0); MCV 88.8 FL (86-99); PLATELET COUNT 379 K/uL (156-360); RBC DIS.WIDTH-CV 14.4 % (11.8-14.6); RBC DIS.WIDTH-SD 46.1 % (39-53); RED BLOOD COUNT 4.39 M/uL (4.00-5.50); WHITE BLOOD COUNT 18.1 K/uL (4.1-10.2)
[2017-10-01 20:27] LABS: CHLORIDE 101 mEq/L (99-109); POTASSIUM 3.7 mEq/L (3.7-5.4); SODIUM 138 mEq/L (136-147)
[2017-10-01 20:29] LABS: GLUCOSE 138 mg/dL (70-99)
[2017-10-01 20:33] LABS: CREATININE 0.9 mg/dL (0.6-1.3); GFR ESTIMATE (CALCULATED) > 59 mL/min/ (58.99-99999)
[2017-10-01 20:34] LABS: UREA NITROGEN (BUN) 16 mg/dL (9-23)
[2017-10-01 20:37] LABS: TROP-I INTERPRETATION NEGATIVE; TROPONIN-I < 0.01 ng/mL (0.0-0.30)
[2017-10-02 00:06] LABS: TROP-I INTERPRETATION NEGATIVE; TROPONIN-I < 0.01 ng/mL (0.0-0.30)
[2017-10-02 00:54] VITALS: BP 152/74
[2017-10-02 05:28] VITALS: BP 131/71
[2017-10-02 06:22] LABS: HEMATOCRIT 35.9 % (38.0-50.0); MCH 27.4 PG (29.0-34.0); MCHC 30.6 G/DL (30.0-36.0); MCV 89.3 FL (86-99); PLATELET COUNT 297 K/uL (156-360); RBC DIS.WIDTH-CV 14.6 % (11.8-14.6); RBC DIS.WIDTH-SD 47.5 % (39-53); RED BLOOD COUNT 4.02 M/uL (4.00-5.50)
[2017-10-02 06:49] LABS: TROP-I INTERPRETATION NEGATIVE; TROPONIN-I 0.01 ng/mL (0.0-0.30)
[2017-10-02 06:55] LABS: ABS NEUTROPHIL COUNT 24.1; ANISOCYTOSIS NONE SEEN; BAND NEUTROPHILS 9.1 % (0-8.0); BURR CELLS 1+; EOSINOPHIL ABS CT 0; HYPOCHROMASIA 1+; LYMPHOCYTES 0.5 % (15.0-45.0); METAMYELOCYTES 0.4 %; MONOCYTES 2.6 % (0-9.0); PLAT.SUFFICIENCY ADEQUATE; POIKILOCYTOSIS 1+; SEG.NEUTROPHILS 87.4 % (46.0-76.0)
[2017-10-02 07:34] VITALS: BP 129/65
[2017-10-02 09:00] LABS: CHLORIDE 104 MEQ/L (99-109); POTASSIUM 4.4 MEQ/L (3.7-5.4); SODIUM 135 MEQ/L (136-147)
[2017-10-02 09:06] LABS: CREATININE 0.7 MG/DL (0.6-1.3); GFR ESTIMATE (CALCULATED) > 59 mL/min/ (58.99-99999); GLUCOSE 193 mg/dL (70-99); UREA NITROGEN (BUN) 12 mg/dL (9-23)
[2017-10-02 11:31] VITALS: BP 127/70
[2017-10-02 15:40] VITALS: BP 137/72
[2017-10-02] MEDS ORDERED: ZENPEP DR 20,01 EACH PO ×2 (15:52→15:53)
[2017-10-02 19:54] VITALS: BP 136/81
[2017-10-03 00:24] VITALS: BP 146/77
[2017-10-03 05:00] VITALS: BP 140/76
[2017-10-03 07:32] VITALS: BP 142/85
[2017-10-03 11:40] VITALS: BP 143/71
[2017-10-03] MEDS ORDERED: LEVAQUIN750 MG PO (12:03)
== END 2017-10-03 13:25 | disposition home or self-care (01) | DRG 190 ==
LOC: EME 19:39 → EDOF 22:55 → 4SOUTH 22:55 → ENRESERV 22:59 → 4SOUTH 10-02 00:37
PROVIDERS: Hospitalist; Physician Assistant
DX: J44.0 Chronic obstructive pulmonary disease with (acute) lower respiratory infection (principal); J18.9 Pneumonia, unspecified organism; Y95 Nosocomial condition; F31.9 Bipolar disorder, unspecified; I10 Essential (primary) hypertension; K21.9 Gastro-esophageal reflux disease without esophagitis; F41.9 Anxiety disorder, unspecified; K31.84 Gastroparesis; G89.29 Other chronic pain; E11.43 Type 2 diabetes mellitus with diabetic autonomic (poly)neuropathy; F17.210 Nicotine dependence, cigarettes, uncomplicated; Z79.4 Long term (current) use of insulin; Z85.01 Personal history of malignant neoplasm of esophagus; Z86.73 Personal history of transient ischemic attack (TIA), and cerebral infarction without residual deficits; Z87.11 Personal history of peptic ulcer disease
CPT/HCPCS: 71046; 71250; 80048; 80202; 82948; 84484; 85025; 85027; 87040; 87449; 87641; 93005; 94640; 94799; 99281; 99285; J0456; J1644; J1815; J2270; J2543; J3370; J7050; J7512